=== PATIENT | male | born 1950 | race Caucasian/White ===

== ENCOUNTER 2018-07-02 22:39 | Emergency (ER) | payer MEDICARE, OTHER, SELFPAY ==
[2018-07-02 22:40] VITALS: BP 152/103; PULSE 70
[2018-07-02] MEDS: NITROGLYCERIN 0.4 MG SL TAB SL (22:40)
[2018-07-02 22:43] VITALS: BMI 28.7
--- NOTE | 2018-07-02 22:44 | DI.RAD.S_ITS ---
PROCEDURE: XR CHEST 1V INDICATIONS: Chest pain TECHNIQUE: One view of the chest was acquired. COMPARISON: None. FINDINGS: Surgical changes and devices: None. Lungs and pleura: No pleural effusions or pneumothorax. Lungs are clear. Mediastinum: Mediastinal contours appear normal. Heart size is normal. Bones and chest wall: No suspicious bony lesions. Overlying soft tissues appear unremarkable. IMPRESSION: No acute cardiopulmonary pathology. Dictated by: Javier Peterson M.D. on 07/03/2018 at 9:11 Approved by: Javier Peterson M.D. on 07/03/2018 at 9:11
--- NOTE | 2018-07-02 22:46 | ED.CHESTPAIN ---
HPI - Chest Pain General Chief Complaint: Chest Pain Stated Complaint: Chest pain Time Seen by Provider: 07/02/18 22:42 Source: patient and EMS Mode of arrival: EMS Limitations: no limitations History of Present Illness HPI narrative: 67-year-old male here for evaluation of chest pain. Patient states that approximately 30 min prior to arrival here in the emergency department he had sudden onset of retrosternal chest pressure and also tingling in both of his arms. He states that he did wake up this morning with back pain however this pain is different from that. He did take 2 full doses of aspirin prior to arrival and also ibuprofen. He states this did not improve any of his symptoms. Received 2 doses of nitroglycerin by EMS prior to arrival which she said may have only minimally improved his symptoms. Pain not worse with palpation or movement or breathing. He has never had any pain like this in the past. Related Data Home Medications Medication Instructions Recorded Confirmed allopurinol 300 mg PO QDAY #0 03/02/13 07/02/18 metoprolol succinate 100 mg PO TID #0 05/19/17 07/02/18 telmisartan [Micardis] 80 mg PO Q DAY #0 05/19/17 07/02/18 hydrochlorothiazide 25 mg PO DAILY 07/02/18 07/02/18 Allergies Allergy/AdvReac Type Severity Reaction Status Date / Time Sulfa (Sulfonamide Allergy Mild Verified 07/02/18 23:48 Antibiotics) Review of Systems Constitutional Denies fever(s) ENT Ears, Nose, Mouth, and Throat: Denies vertigo Cardiovascular Reports chest pain, Reports chest pain at rest, Denies syncope, Denies rapid heart rate, Denies pedal edema, Denies leg edema, Denies lightheadedness and Denies dyspnea Respiratory Denies cough and Denies dyspnea Gastrointestinal Gastrointestinal: Denies abdominal pain, Denies nausea and Denies vomiting Musculoskeletal Denies myalgias and Denies arthralgias Integumentary/Breasts Denies lesions and Denies rash Neurologic Denies vertigo, Denies syncope and Reports paresthesias (Bilateral upper extremities) Hematologic/Lymphatic Comments: Not on anticoagulation PFSH Medical History Hypertension (Acute) Surgical History No pertinent past surgical history (Acute) Social History marital status: lives independently: Yes Exam Initial Vital Signs Initial Vital Signs: Vital Signs Pulse Rate 70 07/02/18 22:40 Blood Pressure 152/103 H 07/02/18 22:40 Const General: cooperative, well developed and well groomed Orientation: alert, awake and oriented x3 HENMT Head: normal to inspection and normocephalic Resp Effort & Inspection: normal respiratory effort Auscultation: clear to auscultation bilaterally Cardio Rate: regular rate Rhythm: regular rhythm GI Inspection: non-distended Palpation: soft Skin Lesions: no lesions Rashes: no rashes Neuro General: alert, awake and oriented x3 Extrem General: normal to inspection and capillary refill normal Psych Appearance: grossly normal and well kempt Scores HEART Score Heart Score history: Moderately Suspicious Heart Score EKG: Non-Specific repolarization disturbance Heart Score Age: > or = 65 years old Heart Score risk factors: 1-2 risk factors Heart Score troponin: < or = to normal limit Heart Score Total: 5 Course Orders Ordered: ED Orders 07/02/18 22:40 B Type Natriuretic Peptide Stat Basic Metabolic Panel Stat Complete Blood Count AUTO DIFF Stat Partial Thromboplastin Time Stat Prothrombin Time INR Stat Troponin I Stat 07/02/18 22:44 XR chest 1V Stat EKG-12 Lead Stat 07/02/18 22:54 CT angio chest PE protocol Stat 07/03/18 04:05 Troponin I Stat 07/03/18 05:02 EKG-12 Lead Stat Heparin Sodium (Porcine) (Heparin) 0 unit IV Q6H PRN; Protocol PRN Reason: protocol Sodium Chloride (Normal Saline 0.9%) 1,000 mls @ 125 mls/hr IV CONT RADHA Last Admin: 07/02/18 22:53 Dose: 125 mls/hr Heparin Sodium/Dextrose (Heparin Drip) 25,000 unit in 500 mls @ 21.772 mls/hr IV CONT RADHA; Protocol Last Admin: 07/03/18 05:11 Dose: 12 units/kg/hr, 21.772 mls/hr Discontinued Medications Al Hydrox/Mg Hydrox/Simethicone 20 ml/ Lidocaine HCl 15 ml 0 ml PO NOW ONE Stop: 07/03/18 00:04 Last Admin: 07/03/18 00:16 Dose: 35 ml Heparin Sodium (Porcine) (Heparin) 5,000 unit IV NOW ONE Stop: 07/03/18 05:05 Last Admin: 07/03/18 05:10 Dose: 5,000 unit Hydrochlorothiazide (Hydrochlorothiazide) 25 mg PO NOW ONE Stop: 07/03/18 05:37 Last Admin: 07/03/18 05:50 Dose: 25 mg Metoprolol Succinate (Toprol Xl) 100 mg PO NOW ONE Stop: 07/03/18 05:30 Last Admin: 07/03/18 05:50 Dose: 100 mg Metoprolol Succinate (Toprol Xl) 100 mg PO NOW ONE Stop: 07/03/18 05:53 Last Admin: 07/03/18 05:57 Dose: 100 mg Morphine Sulfate (Morphine) 4 mg IV NOW ONE Stop: 07/02/18 22:54 Last Admin: 07/02/18 23:00 Dose: 4 mg Nitroglycerin (Nitro-Bid) 0.5 inch TOP NOW ONE Stop: 07/02/18 22:43 Last Admin: 07/02/18 22:53 Dose: 0.5 inch Nitroglycerin (Nitrostat) 0.4 mg SL NOW ONE Stop: 07/02/18 22:41 Last Admin: 07/02/18 22:40 Dose: 0.4 mg Telmisartan (Micardis) 80 mg PO DAILY RADHA Vital Signs - 8 hr 07/02/18 22:50 07/02/18 22:53 07/02/18 23:27 Temperature 97.9 F 97.9 F Pulse Rate 72 70 70 Respiratory Rate 18 18 Blood Pressure 143/100 H 144/110 H 143/100 H Blood Pressure [Left Arm] 144/110 H Pulse Oximetry 98 98 07/03/18 00:00 07/03/18 01:05 07/03/18 03:00 Temperature Pulse Rate 71 69 70 Respiratory Rate 15 16 13 Blood Pressure 143/103 H Blood Pressure [Left Arm] 143/103 H 136/96 H 132/99 H Pulse Oximetry 100 93 94 07/03/18 04:01 07/03/18 05:35 07/03/18 05:50 Temperature Pulse Rate 73 83 85 Respiratory Rate 15 14 Blood Pressure 157/104 H Blood Pressure [Left Arm] 146/100 H 157/104 H Pulse Oximetry 97 99 07/03/18 05:57 07/03/18 06:08 07/03/18 06:30 Temperature Pulse Rate 78 77 80 Respiratory Rate 14 14 Blood Pressure 157/104 H Blood Pressure [Left Arm] 151/113 H 154/105 H Pulse Oximetry 97 95 MDM - Chest Pain Lab Data Attestation: I reviewed the patient's lab results. Result diagrams: 07/02/18 22:40 07/02/18 22:40 Lab Results 07/02/18 07/02/18 07/02/18 Range/Units 22:40 22:40 22:40 WBC 9.2 (4.5-11.0) X10^3/uL RBC 4.76 (4.5-5.9) X10^6/uL Hgb 17.0 (13.5-17.5) g/dL Hct 50.7 (41-53) % MCV 106.6 H (80-100) fL MCH 35.8 H (26-34) PG MCHC 33.6 (30-36) % RDW 13.5 (11.6-14.8) % Plt Count 180 (150-400) X10^3/uL Neut % (Auto) 52.9 (50-75) % Lymph % (Auto) 31.9 (25-40) % [place] % (Auto) 9.0 (3-14) % Eos % (Auto) 5.1 H (2-4) % Baso % (Auto) 1.1 (0-2) % Neut # (Auto) 4900 (6058-4348) /uL PT 9.9 L (10.1-12.7) SECONDS INR 0.9 (0.9-1.3) APTT 29 (26.4-36.2) SECONDS Sodium 145 (137-145) mmol/L Potassium 3.6 (3.4-5.1) mmol/L Chloride 102 (98-107) mmol/L Carbon Dioxide 26 (22-32) mmol/L BUN 23 H (9-20) mg/dL Creatinine 1.70 H (0.66-1.25) mg/dL Estimated GFR 40.4 L (>60) mL/min BUN/Creatinine Ratio 13.5 (6-22) Glucose 87 (80-110) mg/dL Calcium 10.0 (8.4-10.2) mg/dL Troponin I < 0.012 (0.01-0.034) ng/mL B-Natriuretic Peptide 48.7 (<100) 07/03/18 Range/Units 04:05 WBC (4.5-11.0) X10^3/uL RBC (4.5-5.9) X10^6/uL Hgb (13.5-17.5) g/dL Hct (41-53) % MCV (80-100) fL MCH (26-34) PG MCHC (30-36) % RDW (11.6-14.8) % Plt Count (150-400) X10^3/uL Neut % (Auto) (50-75) % Lymph % (Auto) (25-40) % [place] % (Auto) (3-14) % Eos % (Auto) (2-4) % Baso % (Auto) (0-2) % Neut # (Auto) (2731-5244) /uL PT (10.1-12.7) SECONDS INR (0.9-1.3) APTT (26.4-36.2) SECONDS Sodium (137-145) mmol/L Potassium (3.4-5.1) mmol/L Chloride (98-107) mmol/L Carbon Dioxide (22-32) mmol/L BUN (9-20) mg/dL Creatinine (0.66-1.25) mg/dL Estimated GFR (>60) mL/min BUN/Creatinine Ratio (6-22) Glucose (80-110) mg/dL Calcium (8.4-10.2) mg/dL Troponin I 0.872 H* (0.01-0.034) ng/mL B-Natriuretic Peptide (<100) Imaging Data CT scan - chest: Radiologist's impression: No evidence of pulmonary embolism or thoracic aortic dissection ECG Data Attestation: I personally reviewed and interpreted this ECG as follows: Prior ECG tracings: not available for review Interpretation: Sinus rhythm Ventricular rate is 76 Normal axis Normal QRS Normal QTC Nonspecific ST T wave changes Repeat EKG timed 0511 hr Sinus rhythm Ventricular rate is 74 First degree AV block with as needed oval of 210 milliseconds Normal axis Normal QRS Normal QTC MDM Narrative Medical decision making narrative: Patient received aspirin and 2 doses of nitroglycerin prior to arrival here in the emergency department. He received a 3rd dose of nitro here in the ER and he states only minimally if any improved his discomfort. He continued have chest discomfort and bilateral arm tingling. Nitropaste was placed on the patient because of the continued pain. He was given 4 mg of morphine which he states did improve his symptoms somewhat. He was given a GI cocktail which she states did not change any of his symptoms. This was given secondary to the distal esophageal findings on the CT scan. Patient's initial troponin was negative however this was drawn less than 1 hr after the onset of his symptoms. During his stay here in the emergency department he reported improvement in his symptoms. Had a long discussion with the patient regarding his symptoms and his risk factors for coronary artery disease. I did recommend that he stay here in the emergency department for repeat troponin which he agreed to do. This repeat troponin did come back elevated. A repeat EKG was ordered at the time. No significant change on this new EKG from his prior EKG. Heparin was started. Informed patient of his new lab results and the importance of us transfer him to a facility that has cardiology. He expressed understanding and agreement with this transport. Discussed the case with Dr. kenney internal medicine at [facility]. He accepts the patient in transfer. Patient is stable for transfer. Discharge Plan Departure Patient Disposition: [facility] Clinical Impression: Non-ST elevation NC (NSTEMI), Hypertension Prescriptions: No Action allopurinol 300 MG tablet 300 mg PO QDAY Qty: 0 RF: 0 metoprolol succinate 100 MG tablet extended release 24 hr 100 mg PO TID Qty: 0 RF: 0 telmisartan [Micardis] 80 MG tablet 80 mg PO Q DAY Qty: 0 RF: 0 hydrochlorothiazide 25 mg Tablet 25 mg PO DAILY RF: 0
[2018-07-02 22:50] VITALS: BP 143/100; PULSE 72
[2018-07-02 22:53] VITALS: BP 144/110; PULSE 70; RESP 18; TEMP 36.6; O2SAT 98
[2018-07-02] MEDS: NITROGLYCERIN OINT 1 INCH/GM OINT...G. 0.5 INCH TOP (22:53)
[2018-07-02] MEDS: SODIUM CHLORIDE 0.9% 1,000 ML 125 ML IV (22:53)
[2018-07-02 22:54] LABS: Add Manual Diff / Slide Review NO; Basophils Percent Auto 1.1 % (0-2); Eosinophils Percent Auto 5.1 % (2-4); Hematocrit 50.7 % (41-53); Lymphocytes Percent Auto 31.9 % (25-40); Mean Corpuscular HGB Conc 33.6 % (30-36); Mean Corpuscular Hemoglobin 35.8 PG (26-34); Mean Corpuscular Volume 106.6 fL (80-100); Neutrophils Absolute Auto 4900 /uL (3000-5900); Neutrophils Percent Auto 52.9 % (50-75); Platelet Count 180 X10^3/uL (150-400); Red Blood Cell Count 4.76 X10^6/uL (4.5-5.9); Red Cell Distribution Width 13.5 % (11.6-14.8); White Blood Cell Count 9.2 X10^3/uL (4.5-11.0)
--- NOTE | 2018-07-02 22:54 | DI.CT.S_ITS ---
PROCEDURE: CT ANGIO CHEST PE PROTOCOL INDICATIONS: Chest pain, shortness of breath TECHNIQUE: After the administration of intravenous contrast, 2 mm thick sections acquired from the pulmonary apices to the posterior costophrenic angles. 3-dimensional maximum intensity projection (MIP) coronal and sagittal reformats were then acquired through the thorax. For radiation dose reduction, the following was used: automated exposure control, adjustment of mA and/or kV according to patient size. COMPARISON: None. FINDINGS: Image quality: Excellent. Pulmonary arteries: Pulmonary arteries are normal in size, and demonstrate no intraluminal filling defects to suggest central pulmonary embolism. Lungs and pleura: Dependent atelectasis in posterior aspect of bilateral lung bases are seen. Bilateral lungs are otherwise clear. No pleural effusions or pneumothorax. Central and peripheral airways are patent. Mediastinum: Heart size is enlarged, without pericardial effusion. No mediastinal or hilar adenopathy. Thoracic aorta is normal in caliber and enhancement. Esophagus is normal in caliber, with a small hiatal hernia. There is questionable distal esophageal wall thickening near GE junction Bones and chest wall: No suspicious bony lesions. Ribs and thoracic spine appear intact throughout. Thyroid gland is within normal limits. No axillary or supraclavicular adenopathy. Abdomen: Visualized upper abdominal solid organs appear normal in the early arterial phase of enhancement. IMPRESSION: 1. No evidence of pulmonary embolism. No thoracic aortic aneurysm or dissection. Cardiomegaly, no pericardial effusion. 2. Bilateral lungs are clear. 3. Small hiatal hernia and mild distal esophageal wall thickening, which may represent esophagitis. No definite esophageal wall mass is seen. No significant discrepancies. Dictated by: Javier Peterson M.D. on 07/03/2018 at 8:45 Approved by: Javier Peterson M.D. on 07/03/2018 at 8:47
[2018-07-02 22:55] LABS: INR 0.9 (0.9-1.3); Prothrombin Time 9.9 SECONDS (10.1-12.7)
[2018-07-02 22:58] LABS: PTT Partial Thromboplastin Tim 29 SECONDS (26.4-36.2)
[2018-07-02 22:59] LABS: BUN Creatinine Ratio 13.5 (6-22); Blood Urea Nitrogen 23 mg/dL (9-20); Carbon Dioxide 26 mmol/L (22-32); Chloride 102 mmol/L (98-107); Estimated Glomerular Filt Rate 40.4 mL/min (>60); Glucose 87 mg/dL (80-110); HEMOLYSIS 45 (0-50); Potassium 3.6 mmol/L (3.4-5.1); Sodium 145 mmol/L (137-145)
[2018-07-02] MEDS: MORPHINE 4 MG/ML INJ IV (23:00)
[2018-07-02 23:12] LABS: B Type Natriuretic Peptide 48.7 (<100); Troponin I < 0.012 ng/mL (0.01-0.034)
[2018-07-02 23:27] VITALS: BP 143/100; PULSE 70; RESP 18; TEMP 36.6; O2SAT 98; BMI 28.7
--- NOTE | 2018-07-02 23:42 | PC.NURSE ---
Pt states Chest tightness and pain that radiates down both upper extremities bilaterally onset 2200. Reports hx of HTN and no other cardiac hx. States has not taken his nightly 200mg dose of metoprolol yet.
[2018-07-03] VITALS (13 sets, daily range): BP systolic 132–157; BP diastolic 96–113; PULSE 67–85; RESP 13–18; O2SAT 93–100
[2018-07-03] MEDS: MAG HYDROX/ALUMINUM/SIMETH SUS 20 ML, LIDOCAINE VISCOUS 2% 15 ML PO (00:16)
[2018-07-03 04:58] LABS: Troponin I 0.872 ng/mL (0.01-0.034)
[2018-07-03] MEDS: HEPARIN 5,000 UNIT/ML VIAL 5000 UNIT IV (05:10)
[2018-07-03] MEDS: HEPARIN DRIP 25,000 UNIT/500 ML IV.SOLN 21.772 UNIT IV (05:11)
[2018-07-03] MEDS: hydroCHLOROthiazide 25 MG TABLET PO (05:50)
[2018-07-03] MEDS: METOPROLOL ER 50 MG TABLET 100 MG PO ×2 (05:50→05:57)
[2018-07-03] MEDS: SODIUM CHLORIDE 0.9% 1,000 ML 125 ML IV (07:15)
== END 2018-07-03 08:57 | disposition short-term general hospital (02) ==
PROVIDERS: Emergency Provider Emergency Medicine; Family Provider Family Medicine; PCP Family Medicine
DX: I21.4 Non-ST elevation (NSTEMI) myocardial infarction (principal); I10 Essential (primary) hypertension
CPT/HCPCS: 36415; 71045; 71275; 80048; 83880; 84484; 85025; 85610; 85730; 93005; 93010; 96361; 96365; 96366; 96375; 99285; J1644; J2270; Q9967

== ENCOUNTER → 2018-10-26 11:49 | Outpatient (CLI) | payer MEDICARE, OTHER, SELFPAY ==
--- NOTE | 2018-10-26 | DI.RAD.S_ITS ---
PROCEDURE: XR CHEST 2V INDICATIONS: R/O STERNAL NONUNION S/P STERNOTOMY TECHNIQUE: 2 views of the chest were acquired. COMPARISON: None. FINDINGS: Surgical changes and devices: Sternotomy and CABG. Lungs and pleura: Lungs are clear. No pleural effusions or pneumothorax. Mediastinum: Mediastinal contours are normal. Heart size is normal. Bones and chest wall: No suspicious bony abnormalities. Soft tissues appear unremarkable. IMPRESSION: No active cardiopulmonary disease. Dictated by: Maria Luz Kramer M.D. on 10/26/2018 at 14:48 Approved by: Maria Luz Kramer M.D. on 10/26/2018 at 14:49
== END ==
PROVIDERS: Family Provider Family Medicine; PCP Family Medicine; Visit Provider Physician Assistant Surgical
DX: Z48.89 Encounter for other specified surgical aftercare (principal); Z98.890 Other specified postprocedural states; Z95.1 Presence of aortocoronary bypass graft
CPT/HCPCS: 71046

== ENCOUNTER 2018-12-06 14:00 | Outpatient (RCR) | payer MEDICARE, OTHER, SELFPAY | END 2018-12-13 14:55 | LOC: CAR 14:00 | PROVIDERS: Family Provider Family Medicine; PCP Family Medicine; Visit Provider Thoracic Surgery (Cardiothoracic Vascular Surgery) | DX: Z95.1 Presence of aortocoronary bypass graft (principal) | CPT/HCPCS: 93798 ==

== ENCOUNTER → 2020-10-08 15:05 | Outpatient (CLI) | payer MEDICARE, OTHER, SELFPAY ==
--- NOTE | 2020-10-08 | DI.US.S_ITS ---
PROCEDURE: US PERIPH VENOUS LOW EXTREM LT INDICATIONS: Rule out DVT left leg TECHNIQUE: Real-time imaging, as well as color and pulse Doppler interrogation, were performed of the lower extremity deep veins from the inguinal ligament to the popliteal fossa. COMPARISON: None. FINDINGS: The common femoral, femoral and popliteal veins are normally compressible, and free of intraluminal thrombus. Color and pulse Doppler demonstrate normal phasic intraluminal flow. There is normal augmentation response to distal compression maneuver. Soft tissue edema can be seen medial to the left knee. There is a complex, septated mass with vascularity and visualized tract connecting it to the skin measuring 3.2 x 2.2 x 2.1 cm. IMPRESSION: Negative for deep venous thrombosis. Non-specific 3.2 cm focus seen medial to the knee at the area of clinical concern. Differential diagnosis includes hematoma, phlegmon, or potentially an abscess. Please correlate with known patient history. Dictated by: Shahab Gamboa M.D. on 10/08/2020 at 15:52 Approved by: Shahab Gamboa M.D. on 10/08/2020 at 15:53
== END ==
PROVIDERS: PCP Student in an Organized Health Care Education/Training Program; Referring Provider Internal Medicine; Visit Provider Internal Medicine
DX: R22.42 Localized swelling, mass and lump, left lower limb (principal)
CPT/HCPCS: 93971

== ENCOUNTER → 2020-11-13 11:52 | Outpatient (CLI) | payer MEDICARE, OTHER, SELFPAY ==
--- NOTE | 2020-11-13 | DI.RAD.S_ITS ---
PROCEDURE: XR CHEST 2V INDICATIONS: FATIGUE TECHNIQUE: 2 views of the chest were acquired. COMPARISON: [facility], CR, XR CHEST 2V, 10/26/2018, 12:02. [facility], CR, XR CHEST 1V, 07/02/2018, 22:49. FINDINGS: Surgical changes and devices: None. Lungs and pleura: Lungs are clear. No pleural effusions or pneumothorax. Mediastinum: Mediastinal contours are normal. Heart size is normal. Bones and chest wall: No suspicious bony abnormalities. Soft tissues appear unremarkable. IMPRESSION: Normal for age, source of current fatigue symptoms is not seen. Dictated by: Kaveh Benítez M.D. on 11/13/2020 at 12:37 Approved by: Kaveh Benítez M.D. on 11/13/2020 at 12:37
== END ==
PROVIDERS: PCP Student in an Organized Health Care Education/Training Program; Referring Provider Student in an Organized Health Care Education/Training Program; Visit Provider Student in an Organized Health Care Education/Training Program
DX: R53.83 Other fatigue (principal); I25.10 Atherosclerotic heart disease of native coronary artery without angina pectoris
CPT/HCPCS: 71046

== ENCOUNTER → 2020-11-26 10:10 | Outpatient (CLI) | payer MEDICARE, OTHER, SELFPAY ==
--- NOTE | 2020-11-26 | DI.ECHO.S_ITS ---
[facility]---------+ [facility] +---------+ : : [address] : : : : [id number] : : : : Phone: [phone] Echocardiogram Report + + :Name: GREGORIA MENDOZA Study Date: 11/26/2020 Height: 70 in : :[facility] ReadingLocation: Weight: 196 lb : : Gender: Male BSA: 2.1 m2 : :: 1950 Age: 69 yrs BP: 149/99 mmHg: :Reason For Study: CAD : :Ordering Physician: COLLEEN, : :LONG Performed By: Isai Ramirez : :Referring: LONG MACIAS : + + Interpretation Summary Normal left ventricle size with ejection fraction 60-65%. Mild aortic valve sclerosis. Mild mitral regurgitation. Mild to moderate tricuspid regurgitation. The right ventricular systolic pressure is estimated to be at least 36 mmHg based on an estimated right atrial pressure of 3 mm Hg. The ascending aorta is mildly enlarged. Comparison is made with the echocardiogram of 05/18/2017, there has been no significant change. Procedure: A two-dimensional transthoracic echocardiogram with color flow and Doppler was performed. The study quality was technically adequate. Comparison is made with the echocardiogram of 05/18/2017. The patient was in sinus rhythm with heart rates between 58-67 bpm during the exam. Left Ventricle: The left ventricle is normal in size and wall thickness. The ejection fraction is estimated to be 60-65%. There are no focal wall motion abnormalities. Diastolic function could not be accurately assessed due to contradictory data. Right Ventricle: The right ventricle is normal in size and function. Atria: Both atria are normal in size. There is no Doppler evidence for an interatrial shunt. Mitral Valve: The mitral valve is normal in structure and function. There is mild mitral regurgitation. Aortic Valve: There is mild aortic valve sclerosis. There is trace aortic regurgitation. Tricuspid Valve: The tricuspid valve is normal in structure and function. There is mild to moderate tricuspid regurgitation. The right ventricular systolic pressure is estimated to be at least 36 mmHg based on an estimated right atrial pressure of 3 mm Hg. Pulmonic Valve: The pulmonic valve is not well seen, but is grossly normal. There is no pulmonic valvular regurgitation. Great Vessels: The aortic root is normal size. The ascending aorta is mildly enlarged. The IVC is of normal diameter and collapses greater than 50% with a sniff. This suggests a low right atrial pressure of 3 mm Hg. Pericardium/ Pleura There is no pericardial effusion. There is no pleural effusion. MMode/2D Measurements & Calculations LVIDd: 5.2 cm LVOT diam: 2.4 cm LVIDs: 3.6 cm Ao root diam: 3.1 cm FS: 30.1 % asc Aorta Diam: 3.8 cm IVSd: 0.69 cm LVPWd: 0.65 cm LV [place]. diameter/BSA (cm/m^2): 2.5 LV sys. diameter/BSA (cm/m^2): 1.8 LA A2 area: 17.5 cm2 RA area: 11.0 cm2 LA A4 area: 14.1 cm2 LA length (vol): 4.7 cm LA vol: 45.0 ml LA vol index: 21.7 ml/m2 RVD1 (basal): 2.9 cm TAPSE: 1.9 cm Doppler Measurements & Calculations Ao V2 max: 134.5 cm/sec LVOT Max Sean: 124.6 cm/sec Ao V2 mean: 99.2 cm/sec LV V1 max P.2 mmHg Ao max P.2 mmHg LV V1 VTI: 27.4 cm Ao mean P.2 mmHg AN(I,D): 4.1 cm2 Ao V2 VTI: 29.3 cm AN(V,D): 4.0 cm2 sev ratio: 0.94 AN indexed to BSA (cm^2/m^2): 2.0 MV E max sean: 82.2 cm/sec TR max sean: 288.4 cm/sec MV A max sean: 62.9 cm/sec TR max P.3 mmHg MV E/A: 1.3 PA V2 max: 103.4 cm/sec Med Peak E' Sean: 4.8 cm/sec PA V2 mean: 71.1 cm/sec E/E' med: 17.0 PA mean P.2 mmHg Lat Peak E' Sean: 12.8 cm/sec PA pr(Accel): 27.1 mmHg E/E' lat: 6.4 E/e' average: 11.7 MV dec time: 0.16 sec SV(LVOT): 118.9 ml Electronically signed by: Raciel Puckett on Reading Physician:11/26/2020 05:43 PM
== END ==
PROVIDERS: PCP Student in an Organized Health Care Education/Training Program; Referring Provider Student in an Organized Health Care Education/Training Program; Visit Provider Student in an Organized Health Care Education/Training Program
DX: I08.3 Combined rheumatic disorders of mitral, aortic and tricuspid valves (principal); I25.10 Atherosclerotic heart disease of native coronary artery without angina pectoris; I77.89 Other specified disorders of arteries and arterioles; R53.83 Other fatigue
CPT/HCPCS: 93306

== ENCOUNTER → 2020-12-12 11:37 | Outpatient (CLI) | payer MEDICARE, OTHER, SELFPAY ==
[2020-12-12 13:12] LABS: COVID19 -Nasal RAPID Negative (Negative)
== END ==
PROVIDERS: PCP Student in an Organized Health Care Education/Training Program; Visit Provider Physician Assistant
DX: Z20.822 Contact with and (suspected) exposure to COVID-19 (principal)
CPT/HCPCS: 87635; C9803

== ENCOUNTER → 2020-12-14 10:39 | Outpatient (CLI) | payer MEDICARE, OTHER, SELFPAY ==
--- NOTE | 2020-12-14 10:41 | DI.NM.S_ITS ---
PROCEDURE: NM DUNIA PERF SPECT R&S PHARM Rest and pharmacological stress myocardial perfusion SPECT with gated imaging and ejection fraction RADIOPHARMACEUTICAL: 19.2 mCi Tc-99m tetrafosmin IV at rest and 26.8 mCi Tc-99m tetrafosmin IV at peak effect of pharmacological stress. [id number] was performed. INDICATIONS: Atherosclerotic heart disease of [place] coronary TECHNIQUE: Radiopharmaceutical was injected at peak stress test, and also at rest. SPECT images were obtained. SPECT myocardial perfusion images were displayed in short axis, horizontal long axis, and vertical long axis views. Gated images were reviewed using judo software. COMPARISON: None. CARDIAC STRESS: A pharmacologic stress test was performed under the supervision of an attending staff, using an infusion of lexiscan 0.4mg IV X1. Hemodynamic data: There is normal blood pressure and heart rate response to pharmacologic stress. Symptoms: The patient denied anginal chest pain. Aminophylline: none EKG: No diagnostic changes of ischemia; no ectopy. FINDINGS: Raw data: There is good myocardial uptake of radiotracer. No significant motion artifacts. Sncq-[id number] ratio is 0.36 (normal is less than 0.38 for tetrafosmin tracer). Left ventricle function: Gated images demonstrate normal left ventricular wall thickening. No segmental wall motion abnormalities. No transient ischemic dilation; TID is 0.94 (normal less than 1.3). Left ventricle resting end diastolic volume is 91 mL. Left ventricle stress ejection fraction is 72%; normal range is above 45%. Myocardial perfusion: There is a fixed inferior wall defect that doesn't improve with prone imaging, suggesting prior infarction without significant giana-infarct ischemia. There is a fixed inferolaterall wall defect that improves with prone imaging, suggesting prior small infarct and no significant per-infarct ischemia but ischemia can't be definitely excluded as the resting prone images not obtained. IMPRESSION: Abnormal nuclear stress test with prior infarction and no significant per-infarct ischemia. SSS 12. 1) There is a fixed inferior wall defect that doesn't improve with prone imaging, suggesting prior non-transmural infarction without significant giana-infarct ischemia. There is a fixed inferolaterall wall defect that improves with prone imaging, suggesting prior small non-transmural infarct and no significant per-infarct ischemia but ischemia can't be definitely excluded as the resting prone images not obtained. 2) Normal left ventricular size, wall motion, and systolic function (EF post stress 72%). 3) No ECG evidence of ischemia with lexiscan. 4) No angina during the study. 5) No prior nuclear stress test available for comparison. Dictated by: Ashwin Pacheco MD on 12/17/2020 at 17:16 Approved by: Ashwin Pacheco MD on 12/17/2020 at 17:21
--- NOTE | 2020-12-14 11:50 | PM.TREADMILL ---
Cardiac Stress Test Report Referral & Results Date Patient Seen: 12/14/20 Time Patient Seen: 11:50 Requesting provider: Viktoriya Umaña Indication: Atherosclerotic heart disease Rest ECG: Sinus rhythm with Q waves in inferolateral leads Procedure Note: After Lexiscan injection had minimal dyspnea and no chest discomfort No significant ST changes on EKG after Lexiscan injection. Impression: Normal Lexiscan stress test Nuclear images pending. Please note: Actual ECG tracings can be found in the PACS system.
== END ==
PROVIDERS: PCP Student in an Organized Health Care Education/Training Program; Referring Provider Student in an Organized Health Care Education/Training Program; Visit Provider Student in an Organized Health Care Education/Training Program
DX: I25.10 Atherosclerotic heart disease of native coronary artery without angina pectoris (principal); R53.83 Other fatigue
CPT/HCPCS: 78452; 93016; 93017; 93018; A9502; J2785

== ENCOUNTER 2021-05-03 23:34 | Emergency (ER) | payer MEDICARE, OTHER, SELFPAY ==
[2021-05-03 23:40] VITALS: BP 143/79; PULSE 64; RESP 18; TEMP 36.6; O2SAT 100; BMI 27.9
[2021-05-03 23:54] VITALS: BP 131/88; PULSE 67; RESP 15; TEMP 36.1; O2SAT 94
--- NOTE | 2021-05-04 00:37 | DI.CT.S_ITS ---
PROCEDURE: CT HEAD/BRAIN WO CON INDICATIONS: Fall/pain TECHNIQUE: Noncontrast 4.5 mm thick angled axial sections acquired from the foramen magnum to the vertex, with coronal and sagittal reformats. For radiation dose reduction, the following was used: automated exposure control, adjustment of mA and/or kV according to patient size. COMPARISON: [facility], CT, HEAD WITHOUT CONTRAST, 02/27/2013, 9:28. FINDINGS: Image quality: Excellent. CSF spaces: Basal cisterns are patent. No extra-axial fluid collections. The ventricles are symmetric in size and shape. Brain: No intracranial bleeds or masses. There is cerebral volume loss for age, with resultant ventricular and sulcal prominence. There are periventricular and deep white matter chronic small vessel ischemic changes. There is intracranial internal carotid artery atherosclerosis. Skull and face: Calvarium and visualized facial bones appear intact, without suspicious lesions. Bilateral intraocular lens replacements noted. Sinuses: Visualized sinuses and mastoids are clear. IMPRESSION: Mild atrophy and chronic ischemic change without acute hemorrhage or mass effect. Approved by: Junaid Olea M.D. on 05/04/2021 at 0:30
--- NOTE | 2021-05-04 00:37 | DI.CT.S_ITS ---
PROCEDURE: CT FACIAL BONES WO CON INDICATIONS: Fall/pain TECHNIQUE: Noncontrast 2.5 mm thick axial images acquired from the mandible through the frontal sinuses, with coronal and sagittal reformatting. For radiation dose reduction, the following was used: automated exposure control, adjustment of mA and/or kV according to patient size. COMPARISON: None. FINDINGS: Maxillofacial Bones: The zygomaticomaxillary complex is intact. The pterygoid plates and skull base are unremarkable. No evidence of fracture or lytic lesion. Mandible: The mandible is intact without fracture. Unremarkable temporomandibular articulation. Dentition: Unremarkable mandibular and maxillary dentition. Soft tissues: No maxillofacial soft tissue swelling. No radiopaque foreign bodies. Small right periorbital soft tissue laceration noted. Orbits: The osseous orbits, globes and ocular muscles unremarkable. Bilateral intraocular lens replacements noted. Sinuses and Mastoid: The visualized portion of the paranasal sinuses and mastoids are normal. No air-fluid levels or wall fractures. The nasal vault is unremarkable. IMPRESSION: Right periorbital soft tissue laceration and swelling without radiopaque foreign body. No evidence of maxillofacial fracture. Approved by: Junaid Olea M.D. on 05/04/2021 at 0:27
--- NOTE | 2021-05-04 00:37 | DI.CT.S_ITS ---
PROCEDURE: CT CERVICAL SPINE WO CON INDICATIONS: Fall/pain TECHNIQUE: Noncontrast 3 mm thick sections acquired from the skull base to the T4 level. Sagittal and coronal reformats were then constructed. For radiation dose reduction, the following was used: automated exposure control, adjustment of mA and/or kV according to patient size. COMPARISON: None. FINDINGS: Image quality: Excellent. Bones: No fractures or dislocations. Visualized superior ribs are intact. Degenerative disc disease and arthropathy in the mid cervical spine results in mild central stenosis at C6-7 and moderate right foraminal stenosis at C5-6 C6-7 and left foraminal stenosis at C6-7. Soft tissues: Prevertebral soft tissues are normal in thickness. No paravertebral hematomas. No apical pneumothoraces. IMPRESSION: No evidence of fracture or malalignment. Multilevel degenerative disc disease and arthropathy in the mid cervical spine Approved by: Junaid Olea M.D. on 05/04/2021 at 0:41
--- NOTE | 2021-05-04 00:38 | ED_ITS ---
HPI - Head Injury General Chief complaint: Head Injury Stated complaint: tripped on chair, right side head laCeration Time Seen by Provider: 05/04/21 00:22 Source: patient Mode of arrival: Wheelchair Limitations: no limitations History of Present Illness HPI Narrative: Patient here with . Patient has injury to the right eyebrow. 4 cm horizontal laceration. Patient got up tonight and foot got caught on a chair and fell forward hitting his head on the floor. No loss of consciousness. No altered mental status. No vision changes. No vomiting. Bleeding controlled. Patient on blood thinners. Denies any other injuries. No neck pain. No limb pain or injury. No abdomen pelvis or back pain or pelvis pain or hip pain. Needs tetanus shot. Bleeding controlled. No recent illness. No nausea vomiting diarrhea cough cold or congestion. Related Data Home Medications Medication Instructions Recorded Confirmed allopurinol 300 mg tablet 300 mg PO QDAY #0 03/02/13 10/22/20 metoprolol succinate 100 mg 100 mg PO TID #0 05/19/17 10/22/20 tablet,extended release 24 hr telmisartan 80 mg tablet (Micardis) 80 mg PO Q DAY #0 05/19/17 10/22/20 hydrochlorothiazide 25 mg tablet 25 mg PO DAILY 07/02/18 10/22/20 atorvastatin 40 mg tablet 40 mg PO DAILY 10/22/20 10/22/20 brimonidine 0.025 % eye drops drp EYE-LEFT 10/22/20 10/22/20 Allergies Allergy/AdvReac Type Severity Reaction Status Date / Time Sulfa (Sulfonamide Allergy Mild Verified 10/22/20 14:58 Antibiotics) Review of Systems Review of Systems Narrative: GENERAL: Denies chills, fatigue, malaise, fever, sweats. HEENT: Denies sinus pain, ear pain, sore throat RESPIRATORY: Denies dyspnea, cough CARDIOVASCULAR: Denies chest pain, palpitations GASTROINTESTINAL: Denies nausea, vomiting, abdominal pain : Denies dysuria, frequency, hematuria MUSCULOSKELETAL: denies muscle or bony pain SKIN: Denies rash, skin lesions, positive for laceration NEUROLOGIC: Denies weakness, numbness ROS Unobtainable: All systems reviewed & are unremarkable except as noted in HPI and below Patient History Medical History History of heart attack History of prostate cancer Hypertension Surgical History History of prostate surgery Hx of appendectomy Hx of heart bypass surgery No pertinent past surgical history Family History Father Hypertension Stroke Mother Hypertension Brother Hypertension Social History marital status: household members: spouse lives independently: Yes occupational status: previously employed Smoking Status: Never smoker alcohol intake: current substance use type: does not use Smoking Status: Never smoker Exam Narrative Exam Narrative: GENERAL: in no distress, not toxic not dyspneic HEAD: Normocephalic. 4 cm laceration at the right eyebrow. Bloodless field. Base visualized. No bone or muscle injury seen. No foreign body. EYES: Pupils equal round No scleral icterus. No injection no discharge ENT: Mucous membranes moist. NECK: Trachea midline. No midline tenderness or step-off. CARDIOVASCULAR: Regular rate and rhythm without murmurs RESPIRATORY: Clear to auscultation. Breath sounds equal bilaterally. No wheezes, rales, or rhonchi. GASTROINTESTINAL: Abdomen soft, non-tender EXTREMITIES: No gross deformities. Nontender bilateral shoulders elbows wrists pelvis hips knees and ankles. NEURO: AOx4. SKIN: Warm and dry PSYCH: Not anxious, is cooperative Initial Vital Signs Initial Vital Signs: Vital Signs Temperature 97.8 F 05/03/21 23:40 Pulse Rate 64 05/03/21 23:40 Respiratory Rate 18 05/03/21 23:40 Blood Pressure 143/79 H 05/03/21 23:40 Pulse Oximetry 100 05/03/21 23:40 Procedures Laceration Repair Laceration 1: Time of procedure: 02:22 Site: face Side (If applicable): right Size (cm): 4 Description: linear Depth: simple, single layer Local Anesthetic: lidocaine 1% and with epi Amount of anesthesia used (mL): 3 Pre-repair: wound explored, irrigated extensively and deep structures intact Skin layer closed with: nylon Size (cm): 5-0 Number of sutures: 8 Technique: simple, interrupted Course Course Course Narrative: No new issues during course of stay Orders Ordered: Discontinued Medications Bacitracin (Bacitracin Oint 0.9 Gm Pckt) 1 applic TOP NOW ONE Stop: 05/04/21 02:19 Last Admin: 05/04/21 02:22 Dose: 1 applic Documented by: GIOVANNA Diphtheria/Tetanus/Acell Pertussis (Tet,Diph,Pertuss(Acell),Vac/Pf 0.5 Ml Syringe) 0.5 ml IM .ONCE ONE Stop: 05/04/21 00:39 Last Admin: 05/04/21 01:16 Dose: 0.5 ml Documented by: ESTHER Reevaluation(s) Reevaluation #1: Reviewed results with patient. Tolerated procedure well. Bleeding controlled. Return precautions reviewed with him. Time: 02:24 Vital Signs Vital signs: Vital Signs - 8 hr 05/03/21 23:40 05/03/21 23:54 Temperature 97.8 F 97.0 F L Pulse Rate 64 67 Respiratory Rate 18 15 Blood Pressure 143/79 H 131/88 Pulse Oximetry 100 94 MDM - Head Injury Differential Diagnosis Differential diagnosis: Likely concussion without loss of consciousness, epidural hematoma, closed head injury, subdural hematoma and other (Eyebrow laceration) Imaging Data CT scan - head: Radiologist's Impression: [place] [address] CT Scan Report Signed Patient: Néstor Jones MR#: [id number] : 1950 Acct:[id number] Age/Sex: 70 / M Date of Service: 05/04/21 Loc: ED Accession Number: [id number] ?? Procedure: CT head/brain wo con Ordering Provider: Gregorio Harris MD PROCEDURE:? CT HEAD/BRAIN WO CON ? INDICATIONS:? Fall/pain ? TECHNIQUE:? Noncontrast 4.5 mm thick angled axial sections acquired from the foramen magnum to the vertex, with coronal and sagittal reformats.? For radiation dose reduction, the following was used:? automated exposure control, adjustment of mA and/or kV according to patient size.? ? COMPARISON:? [facility], CT, HEAD WITHOUT CONTRAST, 02/27/2013, 9:28. ? FINDINGS:? Image quality:? Excellent.? ? CSF spaces:? Basal cisterns are patent.? No extra-axial fluid collections.? The ventricles are symmetric in size and shape.? ? Brain:? No intracranial bleeds or masses.? There is cerebral volume loss for age, with resultant ventricular and sulcal prominence.? There are periventricular and deep white matter chronic small vessel ischemic changes.? There is intracranial internal carotid artery atherosclerosis.? ? Skull and face:? Calvarium and visualized facial bones appear intact, without suspicious lesions.? Bilateral intraocular lens replacements noted. ? Sinuses:? Visualized sinuses and mastoids are clear.? ? IMPRESSION:? ? Mild atrophy and chronic ischemic change without acute hemorrhage or mass effect. ? ? ? Approved by: Junaid Olea M.D. on 05/04/2021 at 0:30? CT - cervical spine: Radiologist's Impression: [address] [address] [address] Scan Report Signed Patient: Néstor Jones MR#: [id number] : 1950 Acct:[id number] Age/Sex: 70 / M Date of Service: 05/04/21 Loc: ED Accession Number: [id number] ?? Procedure: CT cervical spine wo con Ordering Provider: Gregorio Harris MD PROCEDURE:? CT CERVICAL SPINE WO CON ? INDICATIONS:? Fall/pain ? TECHNIQUE:? Noncontrast 3 mm thick sections acquired from the skull base to the T4 level.? Sagittal and coronal reformats were then constructed.? For radiation dose reduction, the following was used:? automated exposure control, adjustment of mA and/or kV according to patient size.? ? COMPARISON:? None. ? FINDINGS:? Image quality:? Excellent.? ? Bones:? No fractures or dislocations.? Visualized superior ribs are intact.? Degenerative disc disease and arthropathy in the mid cervical spine results in mild central stenosis at C6-7 and moderate right foraminal stenosis at C5-6 C6-7 and left foraminal stenosis at C6-7. ? Soft tissues:? Prevertebral soft tissues are normal in thickness.? No paravertebral hematomas.? No apical pneumothoraces.? ? ? IMPRESSION:? ? No evidence of fracture or malalignment. Multilevel degenerative disc disease and arthropathy in the mid cervical spine ? Approved by: Junaid Olea M.D. on 05/04/2021 at 0:41? ct face: Radiologist's Impression: [address] [address] [address] Scan Report Signed Patient: Néstor Jones MR#: [id number] : 1950 Acct:[id number] Age/Sex: 70 / M Date of Service: 05/04/21 Loc: ED Accession Number: [id number] ?? Procedure: CT facial bones wo con Ordering Provider: Gregorio Harris MD PROCEDURE:? CT FACIAL BONES WO CON ? INDICATIONS:? Fall/pain ? TECHNIQUE:? Noncontrast 2.5 mm thick axial images acquired from the mandible through the frontal sinuses, with coronal and sagittal reformatting.? For radiation dose reduction, the following was used:? automated exposure control, adjustment of mA and/or kV according to patient size.? ? COMPARISON:? None. ? FINDINGS: ? Maxillofacial Bones:? The zygomaticomaxillary complex is intact. The pterygoid plates and skull base are unremarkable. No evidence of fracture or lytic lesion. ? Mandible:? The mandible is intact without fracture.? Unremarkable temporomandibular articulation. ? Dentition:? Unremarkable mandibular and maxillary dentition. ? Soft tissues:? No maxillofacial soft tissue swelling. No radiopaque foreign bodies.? Small right periorbital soft tissue laceration noted. ? Orbits:? The osseous orbits, globes and ocular muscles unremarkable.? Bilateral intraocular lens replacements noted. ? Sinuses and Mastoid:? The visualized portion of the paranasal sinuses and mastoids are normal. No air-fluid levels or wall fractures. The nasal vault is unremarkable. ? ? IMPRESSION:? ? Right periorbital soft tissue laceration and swelling without radiopaque foreign body. No evidence of maxillofacial fracture. ? ? ? Approved by: Junaid Olea M.D. on 05/04/2021 at 0:27? MDM Narrative Medical decision making narrative: Appropriate for discharge home. Patient tolerated procedure very well. Bleeding controlled. No vision changes on the right side. Return precautions reviewed with patient and . Imaging and exam reassuring. Discharge Plan Departure Patient Disposition: Home Clinical Impression: Laceration of face Qualifiers: Encounter type: initial encounter Qualified Code(s): S01.81XA - Laceration without foreign body of other part of head, initial encounter Instructions: DI for Laceration Repair, DI for Closed Head Injury Activity Restrictions/Additional Instructions: See family doctor or go to urgent care in 8 days to remove 8 stitches on the right eyebrow. Clean wound daily with warm soap and water and apply topical antibiotic. Return if worse for any questions or concerns. May shower but no submersion of head under water. Prescriptions: No Action allopurinol 300 MG tablet 300 mg PO QDAY Qty: 0 RF: 0 metoprolol succinate 100 MG tablet extended release 24 hr 100 mg PO TID Qty: 0 RF: 0 telmisartan [Micardis] 80 MG tablet 80 mg PO Q DAY Qty: 0 RF: 0 atorvastatin 40 mg tablet 40 mg PO DAILY RF: 0 brimonidine 0.025 % drops EYE-LEFT RF: 0 hydrochlorothiazide 25 mg Tablet 25 mg PO DAILY RF: 0 Referrals: Viktoriya Umaña MD [Primary Care Provider] -
[2021-05-04] MEDS: TET,DIPH,PERTUSS(ACELL),VAC/PF 0.5 ML SYRINGE IM (01:16)
[2021-05-04 02:04] VITALS: PULSE 66; O2SAT 98
[2021-05-04] MEDS: LIDOCAINE 1% W/EPI 30 ML (02:10)
[2021-05-04] MEDS: BACITRACIN OINT 0.9 GM PCKT 1 APPLIC TOP (02:22)
[2021-05-04 02:27] VITALS: BP 125/76; PULSE 65; O2SAT 96
[2021-05-04 02:30] VITALS: PULSE 61; O2SAT 95
== END 2021-05-04 02:34 | disposition home or self-care (01) ==
PROVIDERS: Emergency Provider Emergency Medicine; PCP Student in an Organized Health Care Education/Training Program
DX: S01.81XA Laceration without foreign body of other part of head, initial encounter (principal); W01.198A Fall on same level from slipping, tripping and stumbling with subsequent striking against other object, initial encounter; Z23 Encounter for immunization
CPT/HCPCS: 12013; 70450; 70486; 72125; 90471; 99284; 90715

== ENCOUNTER → 2021-05-21 08:51 | Outpatient (CLI) | payer MEDICARE, OTHER, SELFPAY ==
[2021-05-21 10:14] LABS: Cholesterol 176 mg/dL (140-199); HDL Cholesterol 71 mg/dL (40-60); LDL Cholesterol Calculated 70 mg/dL (<100); Triglycerides 173 mg/dL (35-150)
== END ==
PROVIDERS: PCP Student in an Organized Health Care Education/Training Program; Referring Provider Internal Medicine Cardiovascular Disease; Visit Provider Internal Medicine Cardiovascular Disease
DX: E78.5 Hyperlipidemia, unspecified (principal)
CPT/HCPCS: 36415; 80061

== ENCOUNTER → 2021-10-23 09:39 | Outpatient (CLI) | payer MEDICARE, OTHER, SELFPAY ==
[2021-10-23 10:43] LABS: COVID19 -Nasal RAPID Negative (Negative)
== END ==
PROVIDERS: PCP Student in an Organized Health Care Education/Training Program; Visit Provider Family Medicine Sleep Medicine
DX: Z20.822 Contact with and (suspected) exposure to COVID-19 (principal)
CPT/HCPCS: 87635; C9803

== ENCOUNTER 2021-10-25 11:56 | Day surgery (SDC) | payer MEDICARE, OTHER, SELFPAY ==
--- NOTE | 2021-10-25 11:59 | PM.HP.1 ---
History of Present Illness History of Present Illness Date Patient Seen: 10/25/21 Chief complaint: SDC Narrative: 70 year old male comes in today for consideration of a screening colonoscopy. He has had 2 lifetime colonoscopies. Last colonoscopy in 2011, indicated for screening, significant for two 1-2 mml polyps in the ascending and rectum, both hyperplastic. There have been no lower GI symptoms suggesting disease such as change in bowel habits, bleeding, abdominal pain or anemia. There's been no family history of colon cancer or colon polyps. Overall health issues have been stable, including no major cardiac events for at least 6 weeks. PCP: Dr. Umaña Past Medical History: Chest wall pain, anterior CAD, S/P CABG HYPERTENSION HYPERLIPIDEMIA Retinal artery branch occlusion, left eye HEARING LOSS TREMOR, ESSENTIAL ARTHRITIS ALLERGIC RHINITIS CANCER, PROSTATE, HX OF Past surgical history: Appendectomy (1994) Prostatectomy (2007) Cataract Extraction, bilateral, (2016) C A B G x 3v (07/03/18) Colonoscopy x2 Family History: Father: Stroke, Diabetes, Hypertension Mother: Hypertension Siblings: Family Hx Diabetes Social History: Marital Status: - Jaida (1946) - Retired Occupation: Retired Education: B.A. degree 3-4 drinks per day Alcohol drinks/day: 4/day Patient History Medical History History of heart attack History of prostate cancer Hypertension Surgical History History of prostate surgery Hx of appendectomy Hx of heart bypass surgery No pertinent past surgical history Family & Social History Family History Father Hypertension Stroke Mother Hypertension Brother Hypertension Social History: household members spouse lives independently Yes Tobacco & Substance use: Smoking Status Never smoker alcohol intake current Meds Home Medications and Allergies Home Medications Medication Instructions Recorded Confirmed Type allopurinol 300 mg tablet 300 mg PO QDAY #0 03/02/13 10/22/20 History metoprolol succinate 100 mg 100 mg PO TID #0 05/19/17 10/22/20 History tablet,extended release 24 hr telmisartan 80 mg tablet (Micardis) 80 mg PO Q DAY #0 05/19/17 10/22/20 History hydrochlorothiazide 25 mg tablet 25 mg PO DAILY 07/02/18 10/22/20 History atorvastatin 40 mg tablet 40 mg PO DAILY 10/22/20 10/22/20 History brimonidine 0.025 % eye drops drp EYE-LEFT 10/22/20 10/22/20 History primidone 50 mg tablet mg 10/25/21 History Allergies Allergy/AdvReac Type Severity Reaction Status Date / Time Sulfa (Sulfonamide Allergy Mild Verified 10/22/20 14:58 Antibiotics) Review of Systems Review of Systems Narrative: All remaining ROS were reviewed and negative except as addressed. Exam Narrative Exam Narrative: GENERAL: Alert and oriented, appearing stated age and in no acute distress. HEENT: Head normocephalic/atraumatic. Extraocular movements intact. LUNGS: Clear to ausculation bilaterally, no wheezes, rhonchi or rales. CV: Normal S1 and S2 with regular rate and rhythm, no audible murmurs, rubs or gallops. ABDOMEN: Soft, non-tender, non-distended, no organomegaly. Positive bowel sounds. EXTREMITIES: No clubbing, cyanosis, or edema. NEURO: Cranial nerves II through XII grossly intact, no focal deficits. PSYCH: Alert and oriented x 3. SKIN: No concerning lesions. Assessment & Plan Assessment & Plan narrative: 1. History of hyperplastic colon polyps 2. Screening for colon cancer Plan for colonoscopy. The nature and character of the procedure as well as anticipated results were discussed. The possibility of not completing the procedure was also discussed. Possible complications including aspiration pneumonia, bleeding, perforation and reaction to medications either for sedation or preparation and missed lesions were discussed. Questions were answered and proceeding to the colonoscopy was elected. Informed consent signed.
--- NOTE | 2021-10-25 12:07 | PM.OP.COLON ---
Operative Date/Time/Diagnoses Date of procedure: 10/25/21 Procedure Notes SCOAP/Timeout: 1:10 p.m. Procedure in detail: ENDOSCOPIST: Viktoriya Umaña MD Sedation RN: Kamryn Alexandre RN Sedation start time: 1:10 p.m. Sedation end time: 1:23 p.m. PROCEDURE: Colonoscopy INDICATIONS: 1. History of colon polyps, hyperplastic 2. Screening for colon cancer MEDICATION: Levsin 0.125 mg sublingual, incremental doses of Versed and fentanyl until appropriate level sedation achieved. ASA CLASS: 2 CECAL WITHDRAWAL TIME: 6 minutes COMPLICATIONS: None. EXTENT OF PROCEDURE: Cecum. QUALITY OF PREP: Good with portions of liquid stool. PROCEDURE: Prior to insertion of the colonoscope, a digital rectal examination was accomplished with circumferential palpation of the distal rectal mucosa without significant findings being noted. The high-definition colonoscope was passed into the rectum in the usual fashion and advanced over to the cecum without difficulty. The ileocecal valve, appendiceal stoma, and medial wall all could be inspected and no abnormalities were seen. ASCENDING COLON: As the colonoscope was withdrawn, care was taken to expose and inspect the haustral folds and minor diverticulosis noted. HEPATIC FLEXURE: Minor diverticulosis, otherwise normal, no polyps, or other abnormalities. TRANSVERSE COLON: Minor diverticulosis, otherwise normal, no polyps, or other abnormalities. DESCENDING COLON: Moderate diverticulosis, otherwise normal, no polyps, or other abnormalities. SIGMOID COLON: Moderate diverticulosis, otherwise normal, no polyps, or other abnormalities. RECTUM: Normal. J maneuver was produced. There was no significant perianal disease. The J maneuver was broken. The remainder of the rectum was inspected and there was no external hemorrhoid disease. The scope was withdrawn. IMPRESSION: 1. Normal colonoscopy 2. Pancolonic diverticulosis, left greater than right PLAN: 1. Repeat colonoscopy in 10 years, as patient will be 80 at that time, it is also reasonable for this to be his last colonoscopy. The possibility of a missed lesion including a malignancy has been discussed with the patient previously. Potential alarm symptoms have been discussed and should be reported immediately.
[2021-10-25 12:19] VITALS: BP 148/87; PULSE 55; RESP 15; TEMP 36.1; O2SAT 99; BMI 27.8
[2021-10-25] MEDS: LACTATED RINGERS 1,000 ML 200 ML IV (12:25)
[2021-10-25] MEDS: HYOSCYAMINE 0.125 MG TABLET PO (12:25)
[2021-10-25] MEDS: MIDAZOLAM 5 MG/5 ML VIAL IV (13:27)
[2021-10-25 13:28] VITALS: BP 127/83; PULSE 53; RESP 18; TEMP 36; O2SAT 95
[2021-10-25] MEDS: fentaNYL 250 MCG/5 ML INJ IV (13:28)
[2021-10-25 13:33] VITALS: BP 127/81; PULSE 52; RESP 18; O2SAT 95
[2021-10-25 13:40] VITALS: BP 124/78; PULSE 54; RESP 18; O2SAT 96
[2021-10-25 14:05] VITALS: BP 122/80; PULSE 55; RESP 16; TEMP 36.1; O2SAT 96
== END 2021-10-25 14:15 | disposition home or self-care (01) ==
PROVIDERS: PCP Student in an Organized Health Care Education/Training Program; Referring Provider Student in an Organized Health Care Education/Training Program; Visit Provider Student in an Organized Health Care Education/Training Program
PROC: 0DJD8ZZ Inspection of Lower Intestinal Tract, Via Natural or Artificial Opening Endoscopic (ICD-10-PCS; CPT 45378; principal; 2021-10-25 13:00)
DX: Z12.11 Encounter for screening for malignant neoplasm of colon (principal); Z86.010 Personal history of colon polyps; K57.30 Diverticulosis of large intestine without perforation or abscess without bleeding
CPT/HCPCS: G0105; J2250; J3010

== ENCOUNTER → 2021-11-19 10:26 | Outpatient (ROUT) | payer MEDICARE, OTHER, SELFPAY ==
[2021-11-19 10:55] LABS: D Dimer 611 ng/mL (<230)
== END ==
PROVIDERS: PCP Student in an Organized Health Care Education/Training Program; Visit Provider Student in an Organized Health Care Education/Training Program
DX: M79.604 Pain in right leg (principal)
CPT/HCPCS: 85379

== ENCOUNTER → 2022-06-23 10:55 | Outpatient (CLI) | payer MEDICARE, OTHER, SELFPAY ==
[2022-06-23 12:33] LABS: Alanine Aminotransferase 30 IU/L (<50); Albumin 4.5 g/dL (3.5-5.0); Albumin Globulin Ratio 1.5 (1.0-2.8); Alkaline Phosphatase 71 U/L (38-126); Aspartate Aminotransferase 29 IU/L (17-59); BUN Creatinine Ratio 21.1 (6-22); Blood Urea Nitrogen 20 mg/dL (9-20); Carbon Dioxide 31 mmol/L (22-32); Chloride 101 mmol/L (98-107); Cholesterol 182 mg/dL (140-199); Estimated Glomerular Filt Rate > 60 mL/min (>60); Glucose 98 mg/dL (80-110); HDL Cholesterol 56 mg/dL (40-60); HEMOLYSIS < 15 (0-50); LDL Cholesterol Calculated 103 mg/dL (<100); Sodium 141 mmol/L (137-145); Total Protein 7.5 g/dL (6.3-8.2); Triglycerides 115 mg/dL (35-150); VLDL Cholesterol Calculated 23 mg/dL (2-30)
[2022-06-23 13:05] LABS: Prostate Specific Antigen < 0.064 ng/mL (0.10-4.00)
== END ==
PROVIDERS: PCP Family Medicine; Referring Provider Student in an Organized Health Care Education/Training Program; Visit Provider Student in an Organized Health Care Education/Training Program
DX: I10 Essential (primary) hypertension (principal); Z85.46 Personal history of malignant neoplasm of prostate; E78.5 Hyperlipidemia, unspecified; I25.810 Atherosclerosis of coronary artery bypass graft(s) without angina pectoris
CPT/HCPCS: 36415; 80053; 80061; 84153

== ENCOUNTER 2022-08-27 00:40 | Emergency (ER) | payer MEDICARE, OTHER, SELFPAY ==
[2022-08-27 00:40] VITALS: BP 180/91; PULSE 68; RESP 20; TEMP 36.8; O2SAT 95; BMI 27.3
[2022-08-27] MEDS: cephALEXin 250 MG PREPACK 1 BOTTLE MISC (01:13)
[2022-08-27] MEDS: TET,DIPH,PERTUSS(ACELL),VAC/PF 0.5 ML SYRINGE IM (01:13)
--- NOTE | 2022-08-27 01:17 | ED_ITS ---
HPI - Extremity Injury (Lower) General Chief Complaint: Extremity Injury, Lower Stated Complaint: fell down escalator @10 tonight lacerations on leg Time Seen by Provider: 08/27/22 00:47 Source: patient and family Mode of arrival: Ambulatory History of Present Illness HPI Narrative: 71-year-old male nonsmoker with history of hyperlipidemia and hypertension as well as DVT on Xarelto presents with his in the chief complaint of minor injuries to his right lower extremity after a ground level fall suffered a few hours ago. He had been in his normal state of health and he and his had just flown from [place] and were going up an escalator at the airport when his baggage became caught up in the escalator which caused him to fall down onto his . He denies any head neck or back pain. He denies any chest pain or shortness of breath. He denies any prodromal symptoms such as dizziness, weakness or lightheadedness. He denies any bony pain but does have some superficial abrasions and skin tears to his right lower extremity. He had been evaluated by paramedics and had a wrap put in place and was encouraged to follow-up. He states his tetanus will need to be updated. Related Data Home Medications Medication Instructions Recorded Confirmed metoprolol succinate 100 mg 100 mg PO BID ##0 05/19/17 03/26/22 tablet,extended release 24 hr telmisartan 80 mg tablet (Micardis) 80 mg PO Q DAY ##0 05/19/17 03/26/22 hydrochlorothiazide 25 mg tablet 25 mg PO DAILY 07/02/18 03/26/22 atorvastatin 40 mg tablet 40 mg PO DAILY 10/22/20 03/26/22 brimonidine 0.025 % eye drops 1 drp EYE-LEFT DAILY 10/22/20 03/26/22 primidone 50 mg tablet 150 mg BID 10/25/21 03/26/22 rivaroxaban 20 mg tablet (Xarelto) 20 mg PO DAILY 12/17/21 03/26/22 Previous Rx's Medication Instructions Recorded cephalexin 500 mg capsule 500 mg PO Q6H 7 days #28 caps 08/27/22 Allergies Allergy/AdvReac Type Severity Reaction Status Date / Time Sulfa (Sulfonamide Allergy Mild Verified 10/22/20 14:58 Antibiotics) amlodipine AdvReac Intermediate Verified 12/17/21 14:16 Review of Systems Review of Systems Narrative: GENERAL: Denies chills, fatigue, malaise, fever, sweats. HEENT: Denies sinus pain, ear pain, sore throat, difficulty swallowing, dizziness. RESPIRATORY: Denies dyspnea, cough, wheezing, hemoptysis, sputum. CARDIOVASCULAR: Denies chest pain, palpitations, orthopnea, edema, GASTROINTESTINAL: Denies nausea, vomiting, abdominal pain, diarrhea, constipation, melena. : Denies dysuria, frequency, incontinence, hematuria, urinary retention. MUSCULOSKELETAL: See HPI SKIN: See HPI NEUROLOGIC: Denies weakness, headache, numbness, change in speech, confusion, seizures, incoordination. PSYCHIATRIC: No concerning psychosocial issues. 12 point review of systems is negative except for those stated above Patient History Medical History History of heart attack History of prostate cancer Hypertension Surgical History History of prostate surgery Hx of appendectomy Hx of heart bypass surgery No pertinent past surgical history Family History Father Hypertension Stroke Mother Hypertension Brother Hypertension Social History marital status: household members: spouse lives independently: Yes occupational status: previously employed Smoking Status: Never smoker alcohol intake: current substance use type: does not use Smoking Status: Never smoker alcohol intake frequency: 0-2 drinks per day Substance Use Type: does not use Exam Narrative Exam Narrative: GENERAL: [71] year old patient appears stated age. Well-developed patient, in mild distress. GCS 15 HEAD: Atraumatic. Normocephalic. No hematoma, contusion, abrasion or evidence of depressed skull fracture EYES: Pupils equal round and reactive. Extraocular motions intact. No scleral icterus. No injection or drainage. ENT: Nose without bleeding, purulent drainage. Throat without erythema, tonsillar hypertrophy or exudate. Airway patent. NECK: Trachea midline. Non tender CARDIOVASCULAR: Regular rate and rhythm without murmurs, gallops, or rubs. RESPIRATORY: Clear to auscultation. Breath sounds equal bilaterally. No wheezes, rales, or rhonchi. GASTROINTESTINAL: Abdomen soft, non-tender, nondistended. EXTREMITIES: Superficial injuries to anterior right lower extremity, multiple small, superficial skin tears and abrasions, no lacerations which would require sutures or other specific intervention. Patient has full painless range of motion at foot, ankle, knee and hip. No bony tenderness BACK: Nontender without deformity or crepitance. No flank tenderness. NEURO: AOx3. SKIN: No rash or erythema of visible areas Initial Vital Signs Initial Vital Signs: Vital Signs Temperature 98.2 F 08/27/22 00:40 Pulse Rate 68 08/27/22 00:40 Respiratory Rate 20 08/27/22 00:40 Blood Pressure 180/91 H 08/27/22 00:40 Pulse Oximetry 95 08/27/22 00:40 Oxygen Delivery Method 08/27/22 00:40 Course Course Course Narrative: Wounds addressed by nursing, tetanus updated Orders Ordered: Discontinued Medications Cefazolin Sodium (Cephalexin 250 Mg Prepack) 1 bottle MISC SEEINSTR ONE Stop: 08/27/22 01:02 Last Admin: 08/27/22 01:13 Dose: 500 mg Documented By: PJ Diphtheria/Tetanus/Acell Pertussis (Tet,Diph,Pertuss(Acell),Vac/Pf 0.5 Ml Syringe) 0.5 ml IM .ONCE ONE Stop: 08/27/22 01:02 Last Admin: 08/27/22 01:13 Dose: 0.5 ml Documented By: PJ Vital Signs Vital signs: Vital Signs - 8 hr 08/27/22 00:40 Temperature 98.2 F Pulse Rate 68 Respiratory Rate 20 Blood Pressure 180/91 H Pulse Oximetry 95 Oxygen Delivery Method Room Air MDM - Extremity Injury (Lower) MDM Narrative Medical decision making narrative: [71-year-old male on anticoagulation with ground level fall, minor injuries to right lower extremity and no head injury, no neck or back pain] Multiple etiologies for patient's symptoms considered including, but not limited to: [Abrasion, laceration versus other] Prior Charts reviewed: Multiple prior emergency department notes Patient with minor injuries after mechanical ground level fall, though he is on Xarelto there is no indication for imaging given his full recall of the event and complete denial of any head injury. There is no bony pain on exam, wounds are superficial, no suture repair indicated. Findings and discharge diagnosis discussed with patient/family followed by verbalization of understanding Return precautions discussed with patient/family whom verbalize understanding of diagnosis and plan Discharge Plan Departure Patient Disposition: Home Clinical Impression: Laceration of right lower extremity Instructions: DI for Laceration Repair-Skin Closure Strips Activity Restrictions/Additional Instructions: *You have been diagnosed with [multiple superficial skin tear right lower extremity] *What to do: *Please continue to take your regular medications as directed. [x ] New medication prescriptions sent to your pharmacy: [[facility] ] [ ] New medication written as a paper prescription [ ] No new medications given *Please follow up with your primary care provider in 2-3 days, call for an appointment. Let them know you were seen in the Emergency Department and that we ask that you be seen in follow up. We will electronically transmit a record of today's note if your PCP is in our system *If you do not have a primary care provider please contact the [facility] Resource line at [phone]. They will ask some questions about your medical history and help get you set up with a doctor in the community. *Return to Emergency Department if you should have any new, worsening or concerning symptoms, such as [fever greater than 101 F, shaking chills, worsening pain, persistent vomiting or other bothersome symptoms] Prescriptions: New cephalexin 500 mg capsule 500 mg PO Q6H 7 Days Qty: 28 0RF No Action metoprolol succinate 100 MG tablet extended release 24 hr 100 mg PO BID Qty: 0 telmisartan [Micardis] 80 MG tablet 80 mg PO Q DAY Qty: 0 atorvastatin 40 mg tablet 40 mg PO DAILY brimonidine 0.025 % drops 1 drp EYE-LEFT DAILY hydrochlorothiazide 25 mg Tablet 25 mg PO DAILY primidone 50 mg tablet 150 mg BID Xarelto 20 mg Tablet 20 mg PO DAILY Rx Instructions: must administer with evening meal Referrals: Max Fisher MD [Primary Care Provider] - Stand Alone Forms: Patient Portal/API
[2022-08-27 01:50] VITALS: BP 135/88; PULSE 64; RESP 18; TEMP 36.2; O2SAT 97
== END 2022-08-27 02:25 | disposition home or self-care (01) ==
PROVIDERS: Emergency Provider Emergency Medicine; PCP Family Medicine
DX: S81.811A Laceration without foreign body, right lower leg, initial encounter (principal); W17.89XA Other fall from one level to another, initial encounter; Z23 Encounter for immunization
CPT/HCPCS: 90471; 99283; 90715

== ENCOUNTER → 2023-06-30 08:51 | Outpatient (CLI) | payer MEDICARE, OTHER, SELFPAY ==
[2023-06-30 09:58] LABS: Add Manual Diff / Slide Review NO; Basophils Absolute Auto 100 /uL (0-100); Eosinophils Absolute Auto 400 /uL (0-450); Eosinophils Percent Auto 4.4 % (2-4); Lymphocytes Absolute Auto 2100 /uL (1100-4500); Lymphocytes Percent Auto 23.5 % (25-40); Mean Corpuscular HGB Conc 34.1 % (30-36); Mean Corpuscular Hemoglobin 35.1 PG (26-34); Mean Corpuscular Volume 102.8 fL (80-100); Monocytes Absolute Auto 800 /uL (0-900); Monocytes Percent Auto 9.7 % (3-14); Neutrophils Absolute Auto 5400 /uL (1500-7000); Neutrophils Percent Auto 61.4 % (50-75); Platelet Count 164 X10^3/uL (150-400); Red Blood Cell Count 3.99 X10^6/uL (4.5-5.9); Red Cell Distribution Width 14.1 % (11.6-14.8); White Blood Cell Count 8.7 X10^3/uL (4.5-11.0)
[2023-06-30 10:24] LABS: BUN Creatinine Ratio 18.9 (6-22); Blood Urea Nitrogen 36 mg/dL (9-20); Calcium 10.8 mg/dL (8.4-10.2); Carbon Dioxide 29 mmol/L (22-32); Chloride 102 mmol/L (98-107); Cholesterol 149 mg/dL (140-199); Estimated Glomerular Filt Rate 37 mL/min (>60); Glucose 100 mg/dL (80-110); HDL Cholesterol 55 mg/dL (40-60); HEMOLYSIS < 15 (0-50); LDL Cholesterol Calculated 70 mg/dL (<100); Potassium 3.7 mmol/L (3.4-5.1); Sodium 140 mmol/L (137-145); Triglycerides 119 mg/dL (35-150)
== END ==
PROVIDERS: PCP Family Medicine; Referring Provider Internal Medicine Cardiovascular Disease; Visit Provider Internal Medicine Cardiovascular Disease
DX: E78.5 Hyperlipidemia, unspecified (principal); I25.10 Atherosclerotic heart disease of native coronary artery without angina pectoris
CPT/HCPCS: 36415; 80048; 80061; 85025

== ENCOUNTER 2023-12-02 07:23 | Inpatient (IN) | payer MEDICARE, OTHER, SELFPAY ==
[2023-12-02] VITALS (17 sets, daily range): BP systolic 94–124; BP diastolic 55–79; PULSE 57–83; RESP 14–22; TEMP 36.2–36.8; O2SAT 94–99; BMI 28.7; BMI 26.5
[2023-12-02 07:46] LABS: Add Manual Diff / Slide Review NO; Basophils Absolute Auto 100 /uL (0-100); Basophils Percent Auto 0.5 % (0-2); Eosinophils Absolute Auto 600 /uL (0-450); Eosinophils Percent Auto 5.4 % (2-4); Hematocrit 44.3 % (41-53); Lymphocytes Absolute Auto 1700 /uL (1100-4500); Lymphocytes Percent Auto 15.2 % (25-40); Mean Corpuscular HGB Conc 33.9 % (30-36); Mean Corpuscular Hemoglobin 34.7 PG (26-34); Mean Corpuscular Volume 102.4 fL (80-100); Monocytes Absolute Auto 1000 /uL (0-900); Monocytes Percent Auto 9.2 % (3-14); Neutrophils Absolute Auto 7500 /uL (1500-7000); Neutrophils Percent Auto 69.7 % (50-75); Platelet Count 156 X10^3/uL (150-400); Red Blood Cell Count 4.32 X10^6/uL (4.5-5.9); Red Cell Distribution Width 13.7 % (11.6-14.8); White Blood Cell Count 10.8 X10^3/uL (4.5-11.0)
[2023-12-02 07:52] LABS: Alanine Aminotransferase 22 IU/L (<50); Albumin 4.8 g/dL (3.5-5.0); Albumin Globulin Ratio 1.5 (1.0-2.8); Alkaline Phosphatase 78 U/L (38-126); Aspartate Aminotransferase 28 IU/L (17-59); Bilirubin Total 0.8 mg/dL (0.2-1.3); Blood Urea Nitrogen 34 mg/dL (9-20); Calcium 10.4 mg/dL (8.4-10.2); Carbon Dioxide 25 mmol/L (22-32); Chloride 105 mmol/L (98-107); Estimated Glomerular Filt Rate 35 mL/min (>60); Globulin 3.1 g/dL (1.7-4.1); Glucose 110 mg/dL (80-110); Potassium 3.2 mmol/L (3.4-5.1); Sodium 140 mmol/L (137-145); Total Protein 7.9 g/dL (6.3-8.2)
--- NOTE | 2023-12-02 07:57 | ED_ITS ---
HPI - Abdominal Pain General Chief Complaint: Abdominal Pain Stated Complaint: abd pain Time Seen by Provider: 12/02/23 07:56 Source: patient, RN notes reviewed and old records reviewed Mode of arrival: Family Vehicle Limitations: no limitations History of Present Illness HPI narrative: 72-year-old male history of pancreatitis in 2014, triple bypass in 2018, DVT, hypertension, dyslipidemia, CKD with prior appendectomy and prostatectomy with complaint of 2 days of abdominal pain. Patient does take a full-dose aspirin intermittently. Patient describes abdominal pain across the entire abdomen but more midline. States it does feel somewhat similar to when he would pancreatitis. States no fevers. No nausea or vomiting. Last bowel movement was yesterday morning. He has been passing flatus. He states no black or bloody stools. No dysuria, urgency frequency or your attention. Patient has not had any bruising or changes. He has chronic back pain but states no new changes. No lightheadedness or passing out. Patient notes he has been on Xarelto for DVTs in the past. He is currently off of it. No tobacco, 2 or 3 alcoholic drinks daily, no recreational drugs. Dr. Fisher is his primary care physician. Related Data Home Medications Medication Instructions Recorded Confirmed telmisartan 80 mg tablet (Micardis) 80 mg PO Q DAY ##0 05/19/17 12/03/23 brimonidine 0.025 % eye drops 1 drp EYE-LEFT DAILY 10/22/20 12/02/23 hydrochlorothiazide 12.5 mg tablet 12.5 mg PO DAILY 12/02/23 12/02/23 rosuvastatin 40 mg tablet 40 mg PO DAILY 12/02/23 12/02/23 metoprolol tartrate 50 mg tablet 50 mg PO BID 12/03/23 12/03/23 Allergies Allergy/AdvReac Type Severity Reaction Status Date / Time Sulfa (Sulfonamide Allergy Mild Verified 12/02/23 07:49 Antibiotics) amlodipine AdvReac Intermediate Verified 12/02/23 07:49 Review of Systems Review of Systems ROS Unobtainable: All systems reviewed & are unremarkable except as noted in HPI and below Patient History Medical History History of heart attack History of prostate cancer Hypertension Surgical History Hx of appendectomy History of prostate surgery Hx of heart bypass surgery No pertinent past surgical history Family History Father Hypertension Stroke Mother Hypertension Brother Hypertension Social History marital status: household members: spouse lives independently: Yes occupational status: previously employed Smoking Status: Never smoker alcohol intake: current substance use type: does not use Smoking Status: Never smoker alcohol intake frequency: 0-2 drinks per day Substance Use Type: does not use Exam Narrative Exam Narrative: GENERAL: Alert and oriented x three, male in mild distress. HEENT: Head normocephalic, atraumatic, EOMI, pupils reactive, face symmetric, moist mucous membranes NECK: Supple, full range of motion CARDIOVASCULAR: Regular rate and rhythm without murmurs, rubs or gallops. RESPIRATORY: Breath sounds equal bilaterally, no wheezes rales or rhonchi. ABDOMEN: Soft, generalized abdominal tenderness but greatest in bilateral lower quadrants left greater than right. Normoactive bowel sounds all 4 quadrants. No guarding or rebound, rigidity, no mass : No CVA tenderness EXTREMITIES: Normal range of motion, no clubbing or edema. Neurovascularly intact NEUROLOGICAL: Cranial nerves II through XII grossly intact. Moving all extremities SKIN: Warm, dry, no petechiae, no rashes or lesions. Initial Vital Signs Initial Vital Signs: Vital Signs Pulse Rate 69 12/02/23 07:30 Pulse Oximetry 97 12/02/23 07:30 Course Orders Ordered: Acetaminophen (Acetaminophen 325 Mg Tablet) 650 mg PO Q6H PRN PRN Reason: Fever/Mild Pain (1-3) Sodium Chloride (Normal Saline 0.9%) 1,000 mls @ 150 mls/hr IV CONT RADHA Last Admin: 12/03/23 12:31 Dose: 150 mls/hr Documented By: Infusion: 12/03/23 12:16 Dose: Infused Documented By: Admin: 12/03/23 05:35 Dose: 150 mls/hr Documented By: Infusion: 12/03/23 05:35 Dose: Infused Documented By: Admin: 12/02/23 23:00 Dose: 150 mls/hr Documented By: Infusion: 12/02/23 23:00 Dose: Infused Documented By: Admin: 12/02/23 16:30 Dose: 150 mls/hr Documented By: Admin: 12/02/23 13:30 Dose: Not Given Documented By: GUME POTASSIUM CHLORIDE IN WATER (Potassium Cl 10 Meq/100 Ml Oumou) 10 meq in 100 mls @ 100 mls/hr IV Q1H [facility] Stop: 12/03/23 14:59 Last Admin: 12/03/23 13:58 Dose: 100 mls/hr Documented By: Infusion: 12/03/23 13:32 Dose: Infused Documented By: Admin: 12/03/23 12:32 Dose: 100 mls/hr Documented By: Infusion: 12/03/23 12:28 Dose: Infused Documented By: Admin: 12/03/23 11:28 Dose: 100 mls/hr Documented By: Morphine Sulfate (Morphine 4 Mg/Ml Inj) 2 mg IV Q2H PRN PRN Reason: Pain, Severe (7-10) Last Admin: 12/03/23 08:35 Dose: 2 mg Documented By: Admin: 12/03/23 05:38 Dose: 2 mg Documented By: MARGARET Naloxone HCl (Naloxone 0.4 Mg/Ml Vial) 0.2 mg IV Q2MIN PRN PRN Reason: Opiate Reversal Brimonidine 0.025 % (Drops) 1 drop EYE-LEFT DAILY [facility] Last Admin: 12/03/23 09:00 Dose: Not Given Documented By: Ondansetron HCl (Ondansetron 4 Mg/2 Ml Inj) 4 mg IV Q8HR PRN PRN Reason: Nausea And Vomiting Rivaroxaban (Rivaroxaban 10 Mg Tablet) 20 mg PO DAILY [facility] Last Admin: 12/03/23 08:16 Dose: Not Given Documented By: Sodium Biphosphate/Sodium Phosphate (Fleets Enema) 1 each OK PRN PRN PRN Reason: Constipation Discontinued Medications Sodium Chloride (Normal Saline 0.9%) 1,000 mls @ 150 mls/hr IV CONT [facility] Last Infusion: 12/02/23 16:29 Dose: Infused Documented By: Infusion: 12/02/23 11:10 Dose: 150 mls/hr Documented By: [facility] Admin: 12/02/23 08:24 Dose: 150 mls/hr Documented By: ABBIE Morphine Sulfate (Morphine 2 Mg/Ml Inj) 2 mg IV NOW ONE Stop: 12/02/23 08:09 Last Admin: 12/02/23 08:27 Dose: 2 mg Documented By: ABBIE Morphine Sulfate (Morphine 4 Mg/Ml Inj) 2 mg IV Q2HR RADHA Last Admin: 12/02/23 14:06 Dose: 2 mg Documented By: JORGE A Ondansetron HCl (Ondansetron 4 Mg/2 Ml Inj) 4 mg IV NOW PRN PRN Reason: Nausea And Vomiting Last Admin: 12/02/23 08:23 Dose: 4 mg Documented By: ABBIE Ondansetron HCl (Ondansetron 4 Mg Odt) 4 mg PO NOW PRN PRN Reason: Nausea And Vomiting Vital Signs Vital signs: Vital Signs - 8 hr 12/02/23 07:30 12/02/23 07:31 12/02/23 07:31 Temperature Pulse Rate 69 68 Respiratory Rate Blood Pressure 121/69 Pulse Oximetry 97 97 Oxygen Delivery Method 12/02/23 07:40 12/02/23 08:00 12/02/23 08:00 Temperature 98.3 F Pulse Rate 69 60 Respiratory Rate 19 19 Blood Pressure 121/69 94/64 Pulse Oximetry 97 95 Oxygen Delivery Method Room Air 12/02/23 08:26 12/02/23 08:26 12/02/23 08:29 Temperature Pulse Rate 60 58 L Respiratory Rate 16 15 Blood Pressure 99/57 L Pulse Oximetry 97 95 Oxygen Delivery Method Room Air 12/02/23 08:29 12/02/23 08:30 12/02/23 08:30 Temperature Pulse Rate 58 L Respiratory Rate 14 Blood Pressure 98/57 L 103/59 L Pulse Oximetry 94 Oxygen Delivery Method Room Air 12/02/23 08:32 12/02/23 08:32 Temperature Pulse Rate 58 L Respiratory Rate 14 Blood Pressure 103/59 L Pulse Oximetry 95 Oxygen Delivery Method MDM - Abdominal Pain Lab Data 12/03/23 04:22 12/03/23 04:22 Labs: Lab Results 12/02/23 Range/Units 07:31 WBC 10.8 (4.5-11.0) X10^3/uL RBC 4.32 L (4.5-5.9) X10^6/uL Hgb 15.0 (13.5-17.5) g/dL Hct 44.3 (41-53) % MCV 102.4 H (80-100) fL MCH 34.7 H (26-34) PG MCHC 33.9 (30-36) % RDW 13.7 (11.6-14.8) % Plt Count 156 (150-400) X10^3/uL Neut % (Auto) 69.7 (50-75) % Lymph % (Auto) 15.2 L (25-40) % Coleman % (Auto) 9.2 (3-14) % Eos % (Auto) 5.4 H (2-4) % Baso % (Auto) 0.5 (0-2) % Neut # (Auto) 7500 H (6723-9436) /uL Lymph # (Auto) 1700 (2053-9485) /uL Coleman # (Auto) 1000 H (0-900) /uL Eos # (Auto) 600 H (0-450) /uL Baso # (Auto) 100 (0-100) /uL Sodium 140 (137-145) mmol/L Potassium 3.2 L (3.4-5.1) mmol/L Chloride 105 (98-107) mmol/L Carbon Dioxide 25 (22-32) mmol/L BUN 34 H (9-20) mg/dL Creatinine 2.00 H (0.66-1.25) mg/dL Estimated GFR 35 L (>60) mL/min BUN/Creatinine Ratio 17.0 (6-22) Glucose 110 (80-110) mg/dL Calcium 10.4 H (8.4-10.2) mg/dL Total Bilirubin 0.8 (0.2-1.3) mg/dL AST 28 (17-59) IU/L ALT 22 (<50) IU/L Alkaline Phosphatase 78 (38-126) U/L Total Protein 7.9 (6.3-8.2) g/dL Albumin 4.8 (3.5-5.0) g/dL Globulin 3.1 (1.7-4.1) g/dL Albumin/Globulin Ratio 1.5 (1.0-2.8) Lipase 6997 H (23-300) U/L Imaging Data CT scan - abdomen/pelvis: Radiologist's Impression: Néstor Jones??72??M??1950 ? Allergy/Adv: Sulfa (Sulfonamide Antibiotics), amlodipine (More??) Close Abdomen Ultrasound (Signed) Michael Blanco - 12/02/23 Abdomen/Pelvis CT (Signed) Clemente Whipple - 12/02/23 Outside DI 11/21/21 Telemetry Strips 10/25/[address] (Signed) Olea,Junaid - 05/04/[address] (Signed) Olea,Junaid - 05/04/[address] (Signed) Olea,Junaid - 05/04/21 Myocardial Perfusion Scan Nuc Med (Signed) Alexandre Pachecorigu - 12/14/20 Echocardiogram Ultrasound (Signed) CoralRoberthroseanna - 11/26/20 Chest X-Ray (Signed) Kaveh Benítez - 11/13/20 Vascular Ultrasound (Signed) Shahab Gamboa - 10/08/20 Chest X-Ray (Signed) NiaLindy valledoron - 10/26/18 Chest CTA (Signed) Javier Peterson - 07/02/18 Chest X-Ray (Signed) Javier Peterson - 07/02/18 Telemetry Strips 07/02/18 Launch?[place] [address] CT Scan Report Signed Patient: Néstor Jones MR#: [id number] : 1950 Acct:[id number] Age/Sex: 72 / M Date of Service: 12/02/23 Loc: ED Accession Number: [id number] Procedure: CT kidney ureter bladder (KUB) Ordering Provider: Karlie Villatoro D.O. PROCEDURE: CT KIDNEY URETER BLADDER (KUB) INDICATIONS: abd pain, b/l lower, hx pancreatitis, no BM x 24 +flatus TECHNIQUE: Axial sections were acquired from the lung bases to the pubic symphysis. Coronal and sagittal reformats were performed. For radiation dose reduction, the following was used: automated exposure control, adjustment of mA and/or kV according to patient size. COMPARISON: [facility], CT, ABDOMEN/PELVIS WITH CONTRAST, 03/02/2013, 20:45. FINDINGS: Image quality: Diagnostic. Lower Chest: Post median sternotomy. URINARY: Right Kidney: No stones or hydronephrosis. Right Ureter: No hydroureter. Left Kidney: No stones or hydronephrosis. Small left renal cyst. Left Ureter: No hydroureter. Bladder: Decompressed. No stones. ABDOMEN: Liver: No contour-deforming solid mass. Gallbladder: Not distended. No stone. Biliary ducts: No biliary dilation. Pancreas: Fat stranding near the head of the pancreas and duodenum, (2/39). Trace fluid tracking inferiorly at the right retroperitoneum. No loculated fluid collection. No pancreatic ductal dilatation seen. No pancreatic calcification. Spleen: Size is within normal limits. Adrenal Glands: No adrenal nodules. Stomach and Bowel: Normal colonic caliber, without significant wall thickening. Diverticulosis. No diverticulitis. The appendix is not identified. Peritoneum: No abnormal intraperitoneal fluid. No free air. Ventral Wall: No hernia. Abdominal Nodes: No enlarged retroperitoneal or mesenteric lymph nodes. Vessels: Saccular abdominal aortic aneurysm measuring 3.7 cm, (4/26), previously 2.4 cm in 2013. Saccular aortic aneurysm measuring 3 cm, (2/47), previously 2.4 cm in 2013. Extensive calcified atherosclerotic plaque. PELVIS: Pelvic Organs: Prostate gland appears atrophic. Vas deferens calcifications. Most frequently seen in diabetic patients. Pelvic Nodes: Unremarkable. Miscellaneous: Fat containing right inguinal hernia seen. Bones: No suspicious osseous lesion. IMPRESSION: 1. Stranding near the head of the pancreas and duodenum. This is most concerning for interstitial edematous pancreatitis or duodenitis. No loculated fluid collection. 2. No kidney stones. No hydronephrosis. 3. Abdominal aortic aneurysms measuring 3.7 cm and 3 cm. Increased compared to 2013. Dictated by: Clemente Whipple M.D. on 12/02/2023 at 8:34 Approved by: Clemente Whipple M.D. on 12/02/2023 at 8:54 US - abdomen: Radiologist's Impression: Néstor Jones??72??M??1950 ? Allergy/Adv: Sulfa (Sulfonamide Antibiotics), amlodipine (More??) Close Abdomen Ultrasound (Signed) Michael Blanco - 12/02/23 Abdomen/Pelvis CT (Signed) Clemente Whipple - 12/02/23 Outside DI 11/21/21 Telemetry Strips 10/25/[address] (Signed) Junaid Olea - 05/04/[address] (Signed) Yayo Oleaic - 05/04/[address] (Signed) Olea,Junaid - 05/04/21 Myocardial Perfusion Scan Nuc Med (Signed) Ashwin Pacheco - 12/14/20 Echocardiogram Ultrasound (Signed) Raciel Moncada - 11/26/20 Chest X-Ray (Signed) Kaveh Benítez - 11/13/20 Vascular Ultrasound (Signed) Keerthi Gamboae - 10/08/20 Chest X-Ray (Signed) Cordelia Kramerangelinadoron - 10/26/18 Chest CTA (Signed) Javier Peterson - 07/02/18 Chest X-Ray (Signed) Javier Peterson - 07/02/18 Telemetry Strips 07/02/18 Launch?Image [address] [address] Ultrasound Report Signed Patient: Néstor Jones MR#: [id number] : 1950 Acct:[id number] Age/Sex: 72 / M Date of Service: 12/02/23 Loc: ED Accession Number: [id number] Procedure: US abdomen limited Ordering Provider: Karlie Villatoro D.O. PROCEDURE: US ABDOMEN LIMITED INDICATIONS: ruq, pancreatitis, has hx of same TECHNIQUE: Real-time scanning was performed of the abdominal and retroperitoneal organs, with image documentation. COMPARISON: [facility], CT, CT KIDNEY URETER BLADDER (KUB), 12/02/2023, 8:15. FINDINGS: Liver: No focal mass. Mildly echogenic. However, there is no fatty infiltration noted on CT. Gallbladder: No gallstones. Focal wall thickening measuring 3.9 mm. No pericholecystic fluid or sonographic Cabral sign. Biliary ducts: Intrahepatic bile ducts are non-dilated. Extrahepatic bile duct caliber measures 5.2 mm. Normal is 6-7 mm or less in diameter, or 10 mm or less post-cholecystectomy. Pancreas: Not visualized secondary to overlying bowel gas Miscellaneous: No free abdominal fluid. IMPRESSION: Focal gallbladder wall thickening, nonspecific. Otherwise unremarkable study. No gallstone disease. Dictated by: Michael Blanco M.D. on 12/02/2023 at 8:54 Approved by: Michael Blanco M.D. on 12/02/2023 at 8:56 ECG Data Attestation: I personally reviewed and interpreted this ECG as follows: Prior ECG tracings: available for review Interpretation: Sinus rhythm rate of 64 OK 192 QRS of 98 QTC 416. Patient has prior from 07/03/2018 appears similar. MDM Narrative Medical decision making narrative: 72-year-old male with complaint of abdominal pain generalized but more in the lower abdomen palpation. Patient does note he has a history of pancreatitis he states it does feel somewhat similar. Show white count of 10.8 hemoglobin of 15, hematocrit of 44 macrocytic platelets of 156. Chemistry shows sodium of 140 potassium of 3.2, chloride of 105 CO2 of 25 with a BUN of 34 creatinine 2 similar to prior in June of 2023 1.9. Calcium slightly elevated at 10.4 glucose of 110 normal LFTs, lipase is 6997. Urine CT KUB patient has chronic kidney disease with a GFR of 35. At trending your head of the pancreas and duodenum trace fluid tracking fairly right retroperitoneum no loculated fluid collection no pancreatic ductal dilation no pancreatic calcification, saccular abdominal aortic aneurysm measuring 3.7 cm previously 2.4 and 2013 saccular aortic aneurysm measuring 3 cm previously 2.4 cm in 2013. Abdominal ultrasound was obtained and shows focal gallbladder wall thickening nonspecific no gallstone disease hepatic and extrahepatic bile ducts are all normal sized. No pericholecystic fluid or sonographic cabral sign. Patient states pain is very similar to his prior pancreatitis with a lipase in the 6000 range and changes consistent with pancreatitis on CT plan for admission with observation. Did update patient about aneurysm and need for follow-up. Spoke with Dr. Fisher, who accepts for admission. Plan for fluids and pain management. Discharge Plan Departure Patient Disposition: Admitted As Inpatient Clinical Impression: Pancreatitis Admit Date/Time: 12/02/23 10:04 Admit Provider: Max Fisher
--- NOTE | 2023-12-02 08:07 | DI.CT.S_ITS ---
PROCEDURE: CT KIDNEY URETER BLADDER (KUB) INDICATIONS: abd pain, b/l lower, hx pancreatitis, no BM x 24 +flatus TECHNIQUE: Axial sections were acquired from the lung bases to the pubic symphysis. Coronal and sagittal reformats were performed. For radiation dose reduction, the following was used: automated exposure control, adjustment of mA and/or kV according to patient size. COMPARISON: [facility], CT, ABDOMEN/PELVIS WITH CONTRAST, 03/02/2013, 20:45. FINDINGS: Image quality: Diagnostic. Lower Chest: Post median sternotomy. URINARY: Right Kidney: No stones or hydronephrosis. Right Ureter: No hydroureter. Left Kidney: No stones or hydronephrosis. Small left renal cyst. Left Ureter: No hydroureter. Bladder: Decompressed. No stones. ABDOMEN: Liver: No contour-deforming solid mass. Gallbladder: Not distended. No stone. Biliary ducts: No biliary dilation. Pancreas: Fat stranding near the head of the pancreas and duodenum, (2/39). Trace fluid tracking inferiorly at the right retroperitoneum. No loculated fluid collection. No pancreatic ductal dilatation seen. No pancreatic calcification. Spleen: Size is within normal limits. Adrenal Glands: No adrenal nodules. Stomach and Bowel: Normal colonic caliber, without significant wall thickening. Diverticulosis. No diverticulitis. The appendix is not identified. Peritoneum: No abnormal intraperitoneal fluid. No free air. Ventral Wall: No hernia. Abdominal Nodes: No enlarged retroperitoneal or mesenteric lymph nodes. Vessels: Saccular abdominal aortic aneurysm measuring 3.7 cm, (4/26), previously 2.4 cm in 2013. Saccular aortic aneurysm measuring 3 cm, (2/47), previously 2.4 cm in 2013. Extensive calcified atherosclerotic plaque. PELVIS: Pelvic Organs: Prostate gland appears atrophic. Vas deferens calcifications. Most frequently seen in diabetic patients. Pelvic Nodes: Unremarkable. Miscellaneous: Fat containing right inguinal hernia seen. Bones: No suspicious osseous lesion. IMPRESSION: 1. Stranding near the head of the pancreas and duodenum. This is most concerning for interstitial edematous pancreatitis or duodenitis. No loculated fluid collection. 2. No kidney stones. No hydronephrosis. 3. Abdominal aortic aneurysms measuring 3.7 cm and 3 cm. Increased compared to 2013. Dictated by: Clemente Whipple M.D. on 12/02/2023 at 8:34 Approved by: Clemente Whipple M.D. on 12/02/2023 at 8:54
[2023-12-02 08:11] LABS: HEMOLYSIS 16 (0-50); Lipase 6997 U/L (23-300)
[2023-12-02] MEDS: ONDANSETRON 4 MG/2 ML INJ IV (08:23)
[2023-12-02] MEDS: SODIUM CHLORIDE 0.9% 1,000 ML 150 ML IV ×3 (08:24→23:00)
--- NOTE | 2023-12-02 08:26 | DI.US.S_ITS ---
PROCEDURE: US ABDOMEN LIMITED INDICATIONS: ruq, pancreatitis, has hx of same TECHNIQUE: Real-time scanning was performed of the abdominal and retroperitoneal organs, with image documentation. COMPARISON: [facility], CT, CT KIDNEY URETER BLADDER (KUB), 12/02/2023, 8:15. FINDINGS: Liver: No focal mass. Mildly echogenic. However, there is no fatty infiltration noted on CT. Gallbladder: No gallstones. Focal wall thickening measuring 3.9 mm. No pericholecystic fluid or sonographic Cabral sign. Biliary ducts: Intrahepatic bile ducts are non-dilated. Extrahepatic bile duct caliber measures 5.2 mm. Normal is 6-7 mm or less in diameter, or 10 mm or less post-cholecystectomy. Pancreas: Not visualized secondary to overlying bowel gas Miscellaneous: No free abdominal fluid. IMPRESSION: Focal gallbladder wall thickening, nonspecific. Otherwise unremarkable study. No gallstone disease. Dictated by: Michael Blanco M.D. on 12/02/2023 at 8:54 Approved by: Michael Blanco M.D. on 12/02/2023 at 8:56
[2023-12-02] MEDS: MORPHINE 2 MG/ML INJ IV (08:27)
--- NOTE | 2023-12-02 09:36 | PC.NURSE ---
Obtained patient care. Resting with at bedside. Awaiting consult with Dr Espana. Patient states pain is 6/10 but manageable declines additional meds at this time
--- NOTE | 2023-12-02 11:54 | PC.NURSE ---
Pt to room 222 via w/c from ER. Pt able to transfer self to bed. Pt denies pain, nausea, or shortness of breath. Spouse Billy is at the bedside. Med. Student currently meeting with Pt. Pt up to bathroom to void. Pt oriented to room, call light, bed controls, and tv controls.
[2023-12-02] MEDS: MORPHINE 4 MG/ML INJ 2 MG IV (14:06)
--- NOTE | 2023-12-02 18:58 | PM.HP.1 ---
History of Present Illness History of Present Illness Date Patient Seen: 12/02/23 Time Patient Seen: 12:45 Chief complaint: abd pain Narrative: Patient is a 72-year-old male with a history of pancreatitis in the past who presents with a few days of increasing abdominal pain. Started with some mild back pain and flank pain he felt like. And then started having more intense abdominal pain over the last week or so. He has had increasing abdominal pain over the last 48 hours in the right side. Last night it woke him up to the point where he was not able to stay. He finally woke his up and said we need to go to the hospital. Describes the pain as dull tender the touch from sternum to [place] bilaterally did not take any medicines does not know anything makes it better coming to the hospital. He describes it as a 7/10. Apparently had a similar episode which felt quite a bit the same 10 years ago where he is admitted for 5-7 days. He has had no fevers no chills no nausea no vomiting no change in his bowel movements no blood in his stool no shortness a breath or chest pain. Patient drinks 3 alcoholic drinks a night. Without other changes. [facility] Medical History History of heart attack History of prostate cancer Hypertension Surgical History Hx of appendectomy History of prostate surgery Hx of heart bypass surgery No pertinent past surgical history Family History Father Hypertension Stroke Mother Hypertension Brother Hypertension Social History marital status: household members: spouse lives independently: Yes occupational status: previously employed Smoking Status: Never smoker alcohol intake: current substance use type: does not use Meds Home Medications and Allergies Home Medications Medication Instructions Recorded Confirmed Type metoprolol succinate 100 mg 100 mg PO BID ##0 05/19/17 12/02/23 History tablet,extended release 24 hr telmisartan 80 mg tablet (Micardis) 80 mg PO Q DAY ##0 05/19/17 12/02/23 History brimonidine 0.025 % eye drops 1 drp EYE-LEFT DAILY 10/22/20 12/02/23 History rivaroxaban 20 mg tablet (Xarelto) 20 mg PO DAILY 12/17/21 12/02/23 History hydrochlorothiazide 12.5 mg tablet 12.5 mg PO DAILY 12/02/23 12/02/23 History rosuvastatin 40 mg tablet 40 mg PO DAILY 12/02/23 12/02/23 History Allergies Allergy/AdvReac Type Severity Reaction Status Date / Time Sulfa (Sulfonamide Allergy Mild Verified 12/02/23 07:49 Antibiotics) amlodipine AdvReac Intermediate Verified 12/02/23 07:49 Review of Systems Review of Systems Narrative: Negative except for above Exam Vital Signs (past 8 hours): - 12/02/23 11:00 12/02/23 11:00 12/02/23 12:00 Temperature 97.1 F L Pulse Rate 57 L 62 Respiratory Rate 15 16 Blood Pressure 112/60 124/79 Pulse Oximetry 96 99 Oxygen Flow Rate 0 Oxygen Delivery Method Room Air Oxygen Flow Rate 0 Narrative Exam Narrative: Alert elderly male in no acute distress. Lying comfortably in bed. Mucous membranes moist. Neck supple without adenopathy. No JVD or bruits. Lungs are clear heart is regular rate and rhythm abdomen is soft mildly distended positive bowel sounds has pretty significant tenderness across the upper abdomen maybe slightly worse in the right upper quadrant. No rebound guarding no masses. Extremities without cyanosis clubbing or edema. Neurologic exam is nonfocal Objective Labs 12/02/23 07:31 12/02/23 07:31 Labs: Laboratory Results - last 24 hr 12/02/23 07:31 WBC 10.8 RBC 4.32 L Hgb 15.0 Hct 44.3 MCV 102.4 H MCH 34.7 H MCHC 33.9 RDW 13.7 Plt Count 156 Neut % (Auto) 69.7 Lymph % (Auto) 15.2 L [place] % (Auto) 9.2 Eos % (Auto) 5.4 H Baso % (Auto) 0.5 Neut # (Auto) 7500 H Lymph # (Auto) 1700 [place] # (Auto) 1000 H Eos # (Auto) 600 H Baso # (Auto) 100 Sodium 140 Potassium 3.2 L Chloride 105 Carbon Dioxide 25 BUN 34 H Creatinine 2.00 H Estimated GFR 35 L BUN/Creatinine Ratio 17.0 Glucose 110 Calcium 10.4 H Total Bilirubin 0.8 AST 28 ALT 22 Alkaline Phosphatase 78 Total Protein 7.9 Albumin 4.8 Globulin 3.1 Albumin/Globulin Ratio 1.5 Lipase 6997 H Assessment & Plan Assessment & Plan narrative: Pancreatitis. Patient no evidence of stones or blocked biliary duct. Bilirubin is normal. No evidence of infection. Probable secondary to alcohol-induced. Although there has been no change in his baseline alcohol would be most likely at this time. We discussed with the patient. . Pain control, fluids, bowel rest. Rechecked tomorrow. Follow from there. Hope will be able to start clear liquids tomorrow Mild irritation of gallbladder wall. No evidence of stones no evidence of blockage etiology is unclear but will follow. Does not appear to be infected significantly at this time and I do not think this is the cause of his pancreatitis but we will watch closely. Consult surgery if any change or doubt. White count tomorrow. Acute on chronic renal failure. Fluid hydration most likely prerenal. CT scan shows no abnormality. Will recheck in a.m.. Continue hydration. Will need fluid hydration anyway with NPO status. History of alcohol use. Unlikely to withdrawal but will watch closely. Certainly is probably the cause of his pancreatitis but will need to watch. Aortic aneurysm. Mild changes I do not think this has anything to do with his current situation. Still pretty significantly small but will need follow-up as outpatient. History of DVT. Will continue his usual Xarelto. Hypertension stable. Coronary artery disease stable. DVT prophylaxis no need secondary to anticoagulation for previous DVT. Code status full. Disposition. I suspect this will be 3-4 days at the very least but will have to see how he turns around. Last time was 7 days. Will follow closely. Quality VTE Deep Vein Thrombosis/Pulmonary Embolism Present on Admission: No
[2023-12-03 04:35] LABS: Add Manual Diff / Slide Review NO; Basophils Absolute Auto 100 /uL (0-100); Basophils Percent Auto 0.8 % (0-2); Eosinophils Absolute Auto 300 /uL (0-450); Eosinophils Percent Auto 3.7 % (2-4); Hematocrit 40.3 % (41-53); Hemoglobin 13.7 g/dL (13.5-17.5); Lymphocytes Absolute Auto 1300 /uL (1100-4500); Lymphocytes Percent Auto 16.3 % (25-40); Mean Corpuscular HGB Conc 33.9 % (30-36); Mean Corpuscular Hemoglobin 34.7 PG (26-34); Mean Corpuscular Volume 102.1 fL (80-100); Monocytes Absolute Auto 900 /uL (0-900); Monocytes Percent Auto 10.7 % (3-14); Neutrophils Absolute Auto 5400 /uL (1500-7000); Neutrophils Percent Auto 68.5 % (50-75); Platelet Count 125 X10^3/uL (150-400); Red Blood Cell Count 3.94 X10^6/uL (4.5-5.9); Red Cell Distribution Width 13.7 % (11.6-14.8); White Blood Cell Count 7.9 X10^3/uL (4.5-11.0)
[2023-12-03 04:52] LABS: Alanine Aminotransferase 16 IU/L (<50); Albumin 3.9 g/dL (3.5-5.0); Albumin Globulin Ratio 1.5 (1.0-2.8); Alkaline Phosphatase 67 U/L (38-126); Aspartate Aminotransferase 21 IU/L (17-59); BUN Creatinine Ratio 16.4 (6-22); Bilirubin Total 0.9 mg/dL (0.2-1.3); Blood Urea Nitrogen 26 mg/dL (9-20); Calcium 9.1 mg/dL (8.4-10.2); Carbon Dioxide 23 mmol/L (22-32); Chloride 110 mmol/L (98-107); Estimated Glomerular Filt Rate 46 mL/min (>60); Globulin 2.6 g/dL (1.7-4.1); Glucose 88 mg/dL (80-110); HEMOLYSIS < 15 (0-50); Potassium 3.2 mmol/L (3.4-5.1); Sodium 142 mmol/L (137-145); Total Protein 6.5 g/dL (6.3-8.2)
[2023-12-03 05:10] LABS: Lipase 5825 U/L (23-300)
[2023-12-03] MEDS: SODIUM CHLORIDE 0.9% 1,000 ML 150 ML IV ×3 (05:35→19:22)
[2023-12-03] MEDS: MORPHINE 4 MG/ML INJ 2 MG IV ×2 (05:38→08:35)
[2023-12-03 07:18] VITALS: O2SAT 95
[2023-12-03 08:00] VITALS: BP 106/64; PULSE 86; RESP 16; TEMP 36.2; O2SAT 96
--- NOTE | 2023-12-03 08:50 | P.PN_ITS ---
Subjective Subjective Date Patient Seen: 12/03/23 Time Patient Seen: 08:40 Interval history: CC: pancreatitis Reports he is feeling better this morning after a night NPO on IVF. Cr is improving he reports pain is now maybe 4/10 and controllable with morphine this is his second bout so he came in early. Exam Vital Signs (past 8 hours): Oxygen Delivery Method Room Air Oxygen Flow Rate 0 Narrative Exam Narrative: laying in bed alert watching TV Const Other: well nourished Resp Other: moving air well speaking complete sentences Cardio Other: regular rate and rhythm well perfused with SCDs on GI Other: soft only mildly tender in epigastric region active bowel sounds Neuro Other: alert oriented Objective Labs 12/03/23 04:22 12/03/23 04:22 Labs: Laboratory Results - last 24 hr 12/03/23 04:22 WBC 7.9 RBC 3.94 L Hgb 13.7 Hct 40.3 L MCV 102.1 H MCH 34.7 H MCHC 33.9 RDW 13.7 Plt Count 125 L Neut % (Auto) 68.5 Lymph % (Auto) 16.3 L [place] % (Auto) 10.7 Eos % (Auto) 3.7 Baso % (Auto) 0.8 Neut # (Auto) 5400 Lymph # (Auto) 1300 [place] # (Auto) 900 Eos # (Auto) 300 Baso # (Auto) 100 Sodium 142 Potassium 3.2 L Chloride 110 H Carbon Dioxide 23 BUN 26 H Creatinine 1.59 H Estimated GFR 46 L BUN/Creatinine Ratio 16.4 Glucose 88 Calcium 9.1 Total Bilirubin 0.9 AST 21 ALT 16 Alkaline Phosphatase 67 Total Protein 6.5 Albumin 3.9 Globulin 2.6 Albumin/Globulin Ratio 1.5 Lipase 5825 H [facility] Medical History History of heart attack History of prostate cancer Hypertension Surgical History Hx of appendectomy History of prostate surgery Hx of heart bypass surgery No pertinent past surgical history Family History Father Hypertension Stroke Mother Hypertension Brother Hypertension Social History marital status: household members: spouse lives independently: Yes occupational status: previously employed Smoking Status: Never smoker alcohol intake: current substance use type: does not use Assessment & Plan Assessment & Plan narrative: #Acute pancreatitis Number improving, agree alcohol possible etiology here. Much improved on IVF will try some sips and chips some water if that does ok maybe clears Pain control, fluids, bowel rest. #Mild irritation of gallbladder wall agree mild - monitor for now no RUQ ttp #Acute on chronic renal failure Cr improving continue aggressive IVF some component of dehydration also possible #History of alcohol use Some headaches today but not too bad. Possible withdrawal - monitor closely Certainly is probably a cause of his pancreatitis. #Aortic aneurysm unrelated, not in range for intervention - f/up as outpt #History of DVT continue xarelto, SCDs #Hypertension Doing well, reintroduce home meds as able #Coronary artery disease stable continue home meds when able DVT prophylaxis: xarelto and SCDs Code: full PCP: Galileo Fisher dispo: pending clinical improvement Quality VTE Deep Vein Thrombosis/Pulmonary Embolism Present on Admission: No
[2023-12-03] MEDS: POTASSIUM CHLORIDE IN WATER 10 MEQ/100 ML PIGGYBACK 100 MEQ IV ×4 (11:28→15:00)
[2023-12-03 13:00] VITALS: BP 117/70; PULSE 77; RESP 16; TEMP 36.6; O2SAT 99
--- NOTE | 2023-12-03 13:26 | CM.DANOTE ---
DCP Assessment Note Pt is a 72yo male, resident of [place], presented with abdominal pain to be determined as pancreatitis. Pt has a hx of pancreatitis and was previously admitted at for 7 days. Pt lives with , Jaida, in a house. Pt's primary care provider is Dr. Max Fisher and insurance is Medicare and [employer]. Reviewed chart and team rounds for pt's medical status and initial discharge needs. SHAKER OPERATOR met w/patient at bedside; introduced self and role. Pt was found in lying in bed, alert and oriented, cooperative with assessment. Pt confirmed his living arrangement and explains he is very independent at baseline. Pt does not identify any dc needs at this time. Plan: Per provider note, pt to be monitored for approximately 3-4 days or until pain is managed. Pt's will be able to transport at time of dc. CM Team following for any pending dc needs that may arise. MUKUL Em Discharge Planning/Care Management CM Discharge Assessment Start: 12/03/23 13:24 Freq: Status: Active Protocol: Document 12/03/23 13:24 MW (Rec: 12/03/23 13:25 MW [id number]) Discharge Planning Assessment Assigned Senior Recruiter MICHAEL Cuevas DPOA/Assigned Designee Name Nayeli Sena Contact Information [phone] Advance Directives? Yes Advance Directives on File No History Provided By Patient,Medical Record Has Patient been admitted in last 30 No days? Prior Living Arrangements House Household Members spouse Type of transporation used prior to Drives own vehicle admit Independent with ADL's Yes Is patient alert and oriented? Yes Barriers to Discharge No Discharge Plan Home Transportation Arrangement Pt's is able to transport at me. Whiteboard Updated in Patient Room with Yes name and ext. # of Senior Recruiter Comment [phone] Please Provide Date Initial DC 12/03/23 Assessment Was Performed Next Review Type Continued Stay Review
[2023-12-03 15:03] VITALS: TEMP 36.9
[2023-12-03] MEDS: ACETAMINOPHEN 325 MG TABLET 650 MG PO ×2 (15:03→21:42)
[2023-12-03 19:00] VITALS: O2SAT 98
[2023-12-03 20:00] VITALS: BP 140/86; PULSE 89; RESP 17; TEMP 35.7; O2SAT 98
[2023-12-04] MEDS: SODIUM CHLORIDE 0.9% 1,000 ML 150 ML IV (01:57)
[2023-12-04 02:09] LABS: Appearance Urine UA CLEAR; Bilirubin Urine UA NEGATIVE (NEGATIVE); Color Urine UA YELLOW; Glucose Urine UA NEGATIVE (Negative); Ketones Urine UA NEGATIVE (NEGATIVE); Leukocyte Esterase Urine UA NEGATIVE (NEGATIVE); Nitrite Urine UA NEGATIVE (Negative); Occult Blood Urine UA 2+ (Negative); Protein Urine UA 2+ (Negative); Specific Gravity Urine UA 1.015 (1.000-1.035); Urobilinogen Urine UA 0.2 E.U./dL (0.2); pH Urine UA 5.5 (4.5-8.0)
[2023-12-04 02:15] LABS: Amorphous Sediment Urine 1+; Granular Casts Urine 5-10/LPF; Hyaline Casts Urine 0-1/LPF; Mucus Urine 1+ (Negative); RBC Urine 0-1/HPF (0-5/HPF); Squamous Epithelial Cell Urine 0-1 /HPF (0-5/HPF); Urine Volume 10mL (spun)
[2023-12-04 02:16] LABS: WBC Urine 0-1/HPF (0-5/HPF)
[2023-12-04 02:17] LABS: Bacteria Urine Occasional (0-1); Culture Indicated Urine Cult Not Indicated
[2023-12-04 05:31] LABS: BUN Creatinine Ratio 14.6 (6-22); Blood Urea Nitrogen 20 mg/dL (9-20); Calcium 8.4 mg/dL (8.4-10.2); Carbon Dioxide 22 mmol/L (22-32); Chloride 111 mmol/L (98-107); Estimated Glomerular Filt Rate 55 mL/min (>60); Glucose 96 mg/dL (80-110); HEMOLYSIS < 15 (0-50); Potassium 3.4 mmol/L (3.4-5.1); Sodium 140 mmol/L (137-145)
[2023-12-04 07:00] VITALS: O2SAT 96
[2023-12-04 08:00] VITALS: BP 144/88; PULSE 85; RESP 16; TEMP 36.1; O2SAT 98
[2023-12-04] MEDS: METOPROLOL IR 50 MG TABLET PO ×2 (08:31→20:22)
[2023-12-04] MEDS: BRIMONIDINE 0.025% 1 EACH EYE-LEFT (08:31)
[2023-12-04] MEDS: ACETAMINOPHEN 325 MG TABLET 650 MG PO ×3 (08:32→20:21)
[2023-12-04 09:02] LABS: Lipase 9688 U/L (23-300)
--- NOTE | 2023-12-04 13:25 | PM.PN.1 ---
Subjective Subjective Date Patient Seen: 12/04/23 Time Patient Seen: 13:25 Interval history: Patient seen in follow-up pancreatitis renal failure hypertension. Patient overall is feeling better today. Less pain. No nausea no vomiting. Otherwise no new changes or complaints. Exam Vital Signs (past 8 hours): - 12/04/23 08:00 Temperature 97.0 F L Pulse Rate 85 Respiratory Rate 16 Blood Pressure 144/88 H Pulse Oximetry 98 Oxygen Delivery Method Room Air Oxygen Flow Rate 0 Narrative Exam Narrative: Alert male smiling interactive in no acute distress Skin is without jaundice. No rash. Normal turgor. Mucous membranes moist. Neck supple without adenopathy. Lungs are clear. Heart is regular rate and rhythm. Abdomen is soft positive bowel sounds with right upper quadrant tenderness no rebound guarding no masses much improved from yesterday. Objective Labs 12/03/23 04:22 12/04/23 05:00 Labs: Laboratory Results - last 24 hr 12/04/23 12/04/23 02:00 05:00 Sodium 140 Potassium 3.4 Chloride 111 H Carbon Dioxide 22 BUN 20 Creatinine 1.37 H Estimated GFR 55 L BUN/Creatinine Ratio 14.6 Glucose 96 Calcium 8.4 Lipase 9688 H D Urine Color Yellow Urine Appearance Clear Urine pH 5.5 Ur Specific [place] 1.015 Urine Protein 2+ H Urine Glucose (UA) Negative Urine Ketones Negative Urine Occult Blood 2+ H Urine Nitrate Negative Urine Bilirubin Negative Urine Urobilinogen 0.2 Ur Leukocyte Esterase Negative Urine RBC 0-1/hpf Urine WBC 0-1/hpf Ur Squamous Epith Cells 0-1 /hpf Amorphous Sediment 1+ Urine Bacteria Occasional (0-1) Hyaline Casts 0-1/lpf Granular Casts 5-10/lpf Urine Mucus 1+ H Ur Culture Indicated? Cult not indicated Vol Urine Centrifuged 10ml (spun) PFSH Medical History History of heart attack History of prostate cancer Hypertension Surgical History Hx of appendectomy History of prostate surgery Hx of heart bypass surgery No pertinent past surgical history Family History Father Hypertension Stroke Mother Hypertension Brother Hypertension Social History marital status: household members: spouse lives independently: Yes occupational status: previously employed Smoking Status: Never smoker alcohol intake: current substance use type: does not use Assessment & Plan Assessment & Plan narrative: Acute pancreatitis. Had started diet because he was feeling better but lipase is up to 9000. Clinically is improved so not really understanding this completely feel like this is secondary to his alcohol but no other issues. I wonder about possible infection but he has not acting infected. He does have the gallbladder wall irritation. And it all really is more right upper quadrant tenderness. Will have to see how things go it certainly seems to be improving. At this point will see how things go. I am going back to clear liquids. We will re-evaluate in morning. Recheck lipase and follow. Acute on chronic renal failure. We will restart fluids at 100 cc an hour and follow. Patient understands. Questions answered. Goals discussed. Recheck in a.m.. Mild irritation of gallbladder wall. I do not think this is secondary to significant infection but if continues to worsen may need to repeat ultrasound to make sure stable. He understands will call if change. History of DVT. Patient has not been taking Xarelto for years. Will discontinue. Aortic aneurysm. Discussed with the patient what this represents will need to follow as outpatient. Hypertension. Will start medication and follow. History of hypokalemia. Stable at this point we will recheck in a.m.. Coronary artery disease. Stable. No evidence of significant issue. DVT prophylaxis. I think he is low risk will continue SCDs Code status full. Disposition. Clinically improving but numbers are. Will see what the next 24 hours rings. They understand questions answered Quality VTE Deep Vein Thrombosis/Pulmonary Embolism Present on Admission: No
[2023-12-04] MEDS: POTASSIUM CHLORIDE 20 MEQ TAB 40 MEQ PO (14:26)
[2023-12-04] MEDS: SODIUM CHLORIDE 0.9% 1,000 ML 100 ML IV (14:26)
--- NOTE | 2023-12-04 15:08 | CM.DPC ---
DCP Cont: Per MD, pt's pain seems to be managed and pt feeling better but Lipase increased and changing back to clears and not yet stable for discharge. Plan: SW to follow closely for likely d/c home with spouse in 1-2 days pending labs and any further identified discharge planning needs. MICHAEL Dias
[2023-12-04 19:00] VITALS: O2SAT 97
[2023-12-04 20:00] VITALS: BP 148/85; PULSE 82; RESP 17; TEMP 36.3; O2SAT 97
[2023-12-05] MEDS: SODIUM CHLORIDE 0.9% 1,000 ML 100 ML IV ×3 (00:45→20:51)
[2023-12-05 05:08] LABS: Alanine Aminotransferase 15 IU/L (<50); Albumin 3.2 g/dL (3.5-5.0); Albumin Globulin Ratio 1.2 (1.0-2.8); Alkaline Phosphatase 65 U/L (38-126); Aspartate Aminotransferase 24 IU/L (17-59); BUN Creatinine Ratio 12.5 (6-22); Bilirubin Total 0.8 mg/dL (0.2-1.3); Blood Urea Nitrogen 15 mg/dL (9-20); Calcium 8.4 mg/dL (8.4-10.2); Carbon Dioxide 21 mmol/L (22-32); Chloride 115 mmol/L (98-107); Estimated Glomerular Filt Rate > 60 mL/min (>60); Globulin 2.6 g/dL (1.7-4.1); Glucose 97 mg/dL (80-110); HEMOLYSIS < 15 (0-50); Potassium 3.4 mmol/L (3.4-5.1); Sodium 140 mmol/L (137-145); Total Protein 5.8 g/dL (6.3-8.2)
[2023-12-05 05:49] LABS: Lipase 3015 U/L (23-300)
[2023-12-05 07:00] VITALS: BP 137/87; PULSE 74; RESP 20; TEMP 37.2; O2SAT 96; O2SAT 98
[2023-12-05] MEDS: BRIMONIDINE 0.025% 1 EACH EYE-LEFT (07:45)
[2023-12-05] MEDS: ACETAMINOPHEN 325 MG TABLET 650 MG PO ×2 (07:45→20:23)
[2023-12-05] MEDS: POTASSIUM CHLORIDE 20 MEQ TAB 40 MEQ PO (07:45)
[2023-12-05] MEDS: METOPROLOL IR 50 MG TABLET PO ×2 (07:45→20:23)
--- NOTE | 2023-12-05 09:43 | P.PN_ITS ---
Subjective Subjective Date Patient Seen: 12/05/23 Time Patient Seen: 09:43 Interval history: Patient's clinical course and care to this point reviewed with Dr. Fisher last evening Patient's seem to be improving clinically and was slowly re fed but had a significant jump in his lipase without a whole lot of symptoms. Still some concern about right upper quadrant source of symptoms with minimal findings on imaging of the gallbladder wall etcetera This morning lipase is nicely down to the lowest level it has been since admission at 3000+. Patient remains afebrile. Hemodynamically stable Patient remains quite asymptomatic. Exam Vital Signs (past 8 hours): - 12/05/23 07:00 Temperature 98.9 F Pulse Rate 74 Respiratory Rate 20 Blood Pressure 137/87 Pulse Oximetry 96 Oxygen Delivery Method Room Air Oxygen Flow Rate 0 Objective Labs 12/03/23 04:22 12/05/23 04:30 Labs: Laboratory Results - last 24 hr 12/05/23 04:30 Sodium 140 Potassium 3.4 Chloride 115 H Carbon Dioxide 21 L BUN 15 Creatinine 1.20 Estimated GFR > 60 BUN/Creatinine Ratio 12.5 Glucose 97 Calcium 8.4 Total Bilirubin 0.8 AST 24 ALT 15 Alkaline Phosphatase 65 Total Protein 5.8 L Albumin 3.2 L Globulin 2.6 Albumin/Globulin Ratio 1.2 Lipase 3015 H [facility] Medical History History of heart attack History of prostate cancer Hypertension Surgical History Hx of appendectomy History of prostate surgery Hx of heart bypass surgery No pertinent past surgical history Family History Father Hypertension Stroke Mother Hypertension Brother Hypertension Social History marital status: household members: spouse lives independently: Yes occupational status: previously employed Smoking Status: Never smoker alcohol intake: current substance use type: does not use Assessment & Plan Assessment & Plan narrative: 1. Pancreatitis-patient clinically seems stable. Given the biochemical relapse with re feeding I think we need to go super slow with this but probably can advanced slowly through the course of the day. I think we should focus more on his clinical symptoms than on his lab results. This is assuming he remains clinically stable hemodynamically afebrile etcetera, etcetera. 2. Acute on chronic renal failure-renal function improved on blood work this morning. Approaching baseline if not already there with a creatinine of 1.2. Continue to push oral fluids. I think I would persist with IV fluids for another 24-36 hours while attempting to increase his oral intake 3. Question gallbladder issue-patient's clinical symptoms do not seem to fit that at this time. No lab work to support biliary tract issues at this time. If further concern consider MRCP etcetera Quality VTE Deep Vein Thrombosis/Pulmonary Embolism Present on Admission: No [facility] PROFEE Charge codes Subsequent inpatient/observation care: [id number]
[2023-12-05 20:00] VITALS: BP 149/96; PULSE 85; RESP 17; TEMP 36.7; O2SAT 98
[2023-12-05 20:25] VITALS: O2SAT 98
[2023-12-06 04:20] LABS: BUN Creatinine Ratio 9.6 (6-22); Blood Urea Nitrogen 11 mg/dL (9-20); Calcium 8.4 mg/dL (8.4-10.2); Carbon Dioxide 19 mmol/L (22-32); Chloride 116 mmol/L (98-107); Estimated Glomerular Filt Rate > 60 mL/min (>60); Glucose 94 mg/dL (80-110); HEMOLYSIS < 15 (0-50); Potassium 3.4 mmol/L (3.4-5.1); Sodium 140 mmol/L (137-145)
[2023-12-06 04:42] LABS: Lipase 3419 U/L (23-300)
[2023-12-06] MEDS: SODIUM CHLORIDE 0.9% 1,000 ML 100 ML IV (06:34)
[2023-12-06 07:00] VITALS: BP 149/89; PULSE 69; RESP 20; TEMP 36.3; O2SAT 97; O2SAT 98
[2023-12-06] MEDS: BRIMONIDINE 0.025% 1 EACH EYE-LEFT (08:09)
[2023-12-06] MEDS: POTASSIUM CHLORIDE 20 MEQ TAB 40 MEQ PO (08:09)
[2023-12-06] MEDS: METOPROLOL IR 50 MG TABLET PO (08:09)
--- NOTE | 2023-12-06 10:14 | PM.PN.1 ---
Subjective Subjective Date Patient Seen: 12/06/23 Time Patient Seen: 10:14 Interval history: Uneventful day yesterday. Patient tolerated full liquids without any symptoms at all Lab work this morning is stable. Lipase still in excess of 3000 but essentially unchanged Vital signs stable Exam Vital Signs (past 8 hours): - 12/06/23 07:00 Temperature 97.3 F L Pulse Rate 69 Respiratory Rate 20 Blood Pressure 149/89 H Pulse Oximetry 97 Oxygen Flow Rate 0 Oxygen Delivery Method Room Air Oxygen Flow Rate 0 Objective Labs 12/03/23 04:22 12/06/23 03:40 Labs: Laboratory Results - last 24 hr 12/06/23 03:40 Sodium 140 Potassium 3.4 Chloride 116 H Carbon Dioxide 19 L BUN 11 Creatinine 1.14 Estimated GFR > 60 BUN/Creatinine Ratio 9.6 Glucose 94 Calcium 8.4 Lipase 3419 H PFSH Medical History History of heart attack History of prostate cancer Hypertension Surgical History Hx of appendectomy History of prostate surgery Hx of heart bypass surgery No pertinent past surgical history Family History Father Hypertension Stroke Mother Hypertension Brother Hypertension Social History marital status: household members: spouse lives independently: Yes occupational status: previously employed Smoking Status: Never smoker alcohol intake: current substance use type: does not use Assessment & Plan Assessment & Plan narrative: 1. Pancreatitis-patient is clinically quite stable. Advance diet further this morning and if remained stable likely can discharge after lunch this afternoon. Patient is admonished to discontinue any use of alcohol whatsoever which is likely at least a contributing factor if not the sole source of his pancreatitis 2. Acute kidney injury-numbers much improved. Will discontinue IV fluids. 3. History of DVT-patient had self discontinued his anticoagulation at home in which was not continued during this hospitalization. No need to continue this at discharge therefore Quality VTE Deep Vein Thrombosis/Pulmonary Embolism Present on Admission: No [facility] Charge codes Subsequent inpatient/observation care: [id number]
--- NOTE | 2023-12-06 11:08 | PC.NURSE ---
Discharge note: Discharge instructions given to patient, discussed importance of lifestyle modifications including diet and alcohol use. Discussed importance of F/U with Dr. Fisher in 2 weeks, and signs of worsening symptoms. Home via private vehicle accompanied by spouse.
--- NOTE | 2023-12-06 11:19 | CM.DPNOTE ---
DCP Note AD COPY WRITER reviewed EMR. Per chart review, pt medically cleared to dc home today. Per RN, on way to transport pt soon. No CM needs. AD COPY WRITER met briefly with pt in room. Reports no needs/denies ETOH needs. Spouse on way to transport home. Plan: home with spouse today, close OP f/u with PCP recommended. CM team will continue to follow as needed. Kayleen Finn, MICHAEL
--- NOTE | 2023-12-10 08:29 | P.DS_ITS ---
History of Present Illness History of Present Illness Date Patient Seen: 12/06/23 Time Patient Seen: 10:55 Chief complaint: abd pain Narrative: Patient is a 72-year-old male with a history of pancreatitis in the past who presents with a few days of increasing abdominal pain. Started with some mild back pain and flank pain he felt like. And then started having more intense abdominal pain over the last week or so. He has had increasing abdominal pain over the last 48 hours in the right side. Last night it woke him up to the point where he was not able to stay. He finally woke his up and said we need to go to the hospital. Describes the pain as dull tender the touch from sternum to [place] bilaterally did not take any medicines does not know anything makes it better coming to the hospital. He describes it as a /10. Apparently had a similar episode which felt quite a bit the same 10 years ago where he is admitted for 5-7 days. He has had no fevers no chills no nausea no vomiting no change in his bowel movements no blood in his stool no shortness a breath or chest pain. Patient drinks 3 alcoholic drinks a night. Without other changes. {from Dr. Fisher's H&P} Discharge Providers Provider Date of admission: 12/02/23 10:04 Discharge Date: 12/06/23 Primary care physician: Max Fisher MD Discharge provider: Jordin Cardona MD Summary Hospital Course Discharge Diagnosis: 1. Acute pancreatitis, resolved 2. Acute kidney injury, resolved 3. History of DVT, no recurrence Hospital Course: Patient was admitted as above. Placed NPO with IV fluid and parental meds for nausea and pain. Patient had really no recurrent symptoms. He was re fed and while he had no recurrent symptoms his lipase numbers actually doubled or more, therefore he had his diet reduced and he was continued to be monitored clinically. Lipase numbers did fall with this. He was re fed and while lipase numbers remained abnormal they did not increase. Patient remained clinically asymptomatic Therefore by the afternoon of the 05 of December he was felt to have recovered from his pancreatitis and was discharged home to follow a careful low fat low residue diet No other active issues were identified. Patient has mild acute kidney injury resolved with the IV fluids administered while he was NPO Patient will have close follow up with his PCP Dr. Fisher Status at Discharge Cognitive/behavioral status at discharge: at baseline, oriented Functional status at discharge: independent ambulation Overall status at discharge: patient is progressing back to baseline Time Spent with Patient Time spent: Less than 30 minutes Exam Vital Signs (past 8 hours): Oxygen Delivery Method Room Air Oxygen Flow Rate 0 Objective Labs 12/03/23 04:22 12/06/23 03:40 [facility] Medical History History of heart attack History of prostate cancer Hypertension Surgical History Hx of appendectomy History of prostate surgery Hx of heart bypass surgery No pertinent past surgical history Family History Father Hypertension Stroke Mother Hypertension Brother Hypertension Social History marital status: household members: spouse lives independently: Yes occupational status: previously employed Smoking Status: Never smoker alcohol intake: current substance use type: does not use Discharge Plan Discharge Plan Patient Disposition: Home Provider Discharge Comment: Call/return for increasing abdominal pain, discontinue alcohol intake Discharge orders & Medications Prescriptions: Continued telmisartan [Micardis] 80 MG tablet 80 mg PO Q DAY Qty: 0 brimonidine 0.025 % drops 1 drp EYE-LEFT DAILY rosuvastatin 40 mg tablet 40 mg PO DAILY hydrochlorothiazide 12.5 mg Tablet 12.5 mg PO DAILY metoprolol tartrate 50 mg tablet 50 mg PO BID Follow up/Referrals: Max Fisher MD [Primary Care Provider] - 2 Weeks Discharge Health Status Multidrug resistant organism: No MDRO Diet/Activity/Treatments Diet: Diet as Tolerated and Low-fat Visit Report/Discharge Packet Instructions: Eating a Diet Low in Saturated Fat, Trans Fat, and Cholesterol, Pancreatitis (Alternative Therapy), Acute Pancreatitis, DI for Pancreatitis Stand Alone Forms: Patient Portal/API, Stroke Signs & Symptoms Discharge Data Primary Care Provider: Max Fisher Quality VTE Deep Vein Thrombosis/Pulmonary Embolism Present on Admission: No [facility]H PROFEE Charge Codes Discharge inpatient/observation: 26605
== END 2023-12-06 11:45 | disposition home or self-care (01) | DRG 439 ==
LOC: ED 09:58 → AC 10:06
PROVIDERS: Internal Medicine; Admitting Provider Family Medicine; Emergency Provider Emergency Medicine; PCP Family Medicine; Referring Provider Emergency Medicine; Visit Provider Family Medicine
DX: K85.20 Alcohol induced acute pancreatitis without necrosis or infection (principal); N17.9 Acute kidney failure, unspecified; I25.10 Atherosclerotic heart disease of native coronary artery without angina pectoris; I12.9 Hypertensive chronic kidney disease with stage 1 through stage 4 chronic kidney disease, or unspecified chronic kidney disease; N18.9 Chronic kidney disease, unspecified; I71.40 Abdominal aortic aneurysm, without rupture, unspecified; Z86.718 Personal history of other venous thrombosis and embolism; Z79.01 Long term (current) use of anticoagulants
CPT/HCPCS: 36415; 74176; 76705; 80048; 80053; 81001; 83690; 85025; 93005; 93010; 96374; 96375; 99232; 99233; 99284; J2270; J2405

== ENCOUNTER → 2024-08-01 08:04 | Outpatient (CLI) | payer MEDICARE, OTHER, SELFPAY ==
[2023-12-02 11:40] VITALS: BMI 26.5
[2024-08-01 10:26] LABS: Hematocrit 44.4 % (41-53); Hemoglobin 14.6 g/dL (13.5-17.5); Mean Corpuscular HGB Conc 32.8 % (30-36); Mean Corpuscular Hemoglobin 34.7 PG (26-34); Mean Corpuscular Volume 105.7 fL (80-100); Platelet Count 175 X10^3/uL (150-400); Red Cell Distribution Width 14.1 % (11.6-14.8); White Blood Cell Count 7.1 X10^3/uL (4.5-11.0)
[2024-08-01 10:53] LABS: BUN Creatinine Ratio 18.2 (6-22); Blood Urea Nitrogen 28 mg/dL (9-20); Calcium 10.2 mg/dL (8.4-10.2); Carbon Dioxide 28 mmol/L (22-32); Chloride 106 mmol/L (98-107); Cholesterol 155 mg/dL (140-199); Estimated Glomerular Filt Rate 47 mL/min (>60); Glucose 100 mg/dL (80-110); HDL Cholesterol 60 mg/dL (40-60); HEMOLYSIS < 15 (0-50); LDL Cholesterol Calculated 70 mg/dL (<100); Potassium 3.8 mmol/L (3.4-5.1); Sodium 142 mmol/L (137-145); Triglycerides 127 mg/dL (35-150)
== END ==
PROVIDERS: PCP Family Medicine; Referring Provider Internal Medicine Cardiovascular Disease; Visit Provider Internal Medicine Cardiovascular Disease
DX: E78.5 Hyperlipidemia, unspecified (principal); I25.10 Atherosclerotic heart disease of native coronary artery without angina pectoris
CPT/HCPCS: 36415; 80048; 80061; 85027

== ENCOUNTER → 2025-01-18 13:40 | Outpatient (CLI) | payer MEDICARE, OTHER, SELFPAY ==
[2023-12-02 11:40] VITALS: BMI 26.5
--- NOTE | 2025-01-18 13:42 | DI.ECHO.S_ITS ---
[facility]---------+ [facility] : : [address] : : [place] : : [id number] : : Phone: [phone] Echocardiogram Report + + :Name: GREGORIA MENDOZA Study Date: 01/18/2025 Height: 70 in : :[facility] ReadingLocation: Weight: 185 lb : : Gender: Male BSA: 2.0 m2 : :: 1950 Age: 74 yrs BP: 147/88 mmHg: :Reason For Study: MURMUR : :Ordering Physician: JENI, : :MICHELLE Performed By: Akin Adams : :Referring: MICHELLE PACHECO : + + Interpretation Summary 1) Normal left ventricular thickness, size, wall motion, and systolic function (EF 60-65%). 2) Mildly enlarged right ventricle with normal function. 3) There is mild aortic stenosis (valve area 1.9cm2, mean gradient 11mmHg). 4) There is mild to moderate aortic regurgitation. 5) There is mild to moderate tricuspid regurgitation. 6) The right ventricular systolic pressure is estimated to be at least 48 mmHg based on an estimated right atrial pressure of 3 mm Hg. 7) Compared to the Echo done 11/26/2020, mild aortic stenosis is present on this study. Procedure: A two-dimensional transthoracic echocardiogram with color flow and Doppler was performed. The study quality was technically good. Comparison is made with the echocardiogram of 11/26/2020. The patient was in normal sinus rhythm during the exam. Left Ventricle: The left ventricle is normal in size. There is normal left ventricular wall thickness. There is no ventricular septal defect visualized. The ejection fraction is estimated to be 60-65%. There are no focal wall motion abnormalities. Right Ventricle: The right ventricle is mildly dilated. The right ventricular systolic function is normal. Atria: The left atrium is borderline dilated. Right atrial size is normal. There is no Doppler evidence for an interatrial shunt. Mitral Valve: There is mild mitral annular calcification. The mitral valve leaflets appear normal. There is no evidence of stenosis, fluttering, or prolapse. There is trace mitral regurgitation. Aortic Valve: The aortic valve is trileaflet. There is mild aortic valve sclerosis. The peak aortic velocity is 2.36 m/sec. The calculated aortic valve area is 1.9 cm2. There is mild aortic stenosis. There is mild to moderate aortic regurgitation. Tricuspid Valve: The tricuspid valve leaflets are thin and pliable. There is mild to moderate tricuspid regurgitation. The right ventricular systolic pressure is estimated to be at least 48 mmHg based on an estimated right atrial pressure of 3 mm Hg. Pulmonic Valve: The pulmonic valve leaflets are thin and pliable; valve motion is normal. There is no pulmonic valvular regurgitation. Great Vessels: The aortic root is normal size. The ascending aorta is at the upper limits of normal in size. The pulmonary artery is normal size. The IVC is of normal diameter and collapses greater than 50% with a sniff. This suggests a low right atrial pressure of 3 mm Hg. Pericardium/ Pleura There is no pericardial effusion. There is no pleural effusion. MMode/2D Measurements & Calculations LVIDd: 4.8 cm LVOT diam: 2.1 cm LVIDs: 3.1 cm Ao root diam: 3.4 cm FS: 34.7 % asc Aorta Diam: 3.8 cm EPSS: 0.55 cm IVSd: 1.0 cm LVPWd: 1.0 cm LV [place]. diameter/BSA (cm/m^2): 2.4 LV sys. diameter/BSA (cm/m^2): 1.5 LA A2 area: 17.5 cm2 RA long axis: 5.1 cm LA A4 area: 26.1 cm2 RA area: 14.7 cm2 LA length (vol): 6.4 cm RA vol: 36.5 ml LA vol: 60.0 ml RA : 18.1 ml/m2 LA vol index: 29.7 ml/m2 IVC diam: 2.0 cm RVD1 (basal): 4.7 cm RVD2 (mid): 3.5 cm TAPSE: 2.0 cm Doppler Measurements & Calculations Ao V2 max: 236.4 cm/sec LVOT Max Sean: 128.9 cm/sec Ao V2 mean: 152.9 cm/sec LV V1 max P.6 mmHg Ao max P.3 mmHg LV V1 VTI: 30.3 cm Ao mean P.8 mmHg AN(I,D): 2.2 cm2 Ao V2 VTI: 50.0 cm AN(V,D): 1.9 cm2 sev ratio: 0.61 AN indexed to BSA (cm^2/m^2): 1.1 AI P1/2t: 381.6 msec AI dec slope: 364.9 cm/sec2 MV E max sean: 60.8 cm/sec TR max sean: 334.0 cm/sec MV A max sean: 75.3 cm/sec TR max P.6 mmHg MV E/A: 0.81 PA V2 max: 103.2 cm/sec Med Peak E' Sean: 4.7 cm/sec PA V2 mean: 74.6 cm/sec E/E' med: 13.0 PA mean P.4 mmHg Lat Peak E' Sean: 9.4 cm/sec PA pr(Accel): 72.1 mmHg E/E' lat: 6.5 E/e' average: 9.7 MV dec time: 0.18 sec SV(LVOT): 107.9 ml Reading Physician:06:42 PM
== END ==
LOC: ECHO 13:41
PROVIDERS: PCP Family Medicine; Referring Provider Internal Medicine Cardiovascular Disease; Visit Provider Internal Medicine Cardiovascular Disease
DX: I08.2 Rheumatic disorders of both aortic and tricuspid valves (principal); R01.1 Cardiac murmur, unspecified
CPT/HCPCS: 93306

== ENCOUNTER 2025-06-01 00:17 | Emergency (ER) | payer MEDICARE, OTHER, SELFPAY ==
[2023-12-02 11:40] VITALS: BMI 26.5
[2025-06-01] VITALS (13 sets, daily range): BP systolic 107–162; BP diastolic 54–89; PULSE 53–77; RESP 13–20; TEMP 36.5; O2SAT 94–99; BMI 25.8
--- NOTE | 2025-06-01 00:35 | ED_ITS ---
HPI - General Adult
--- NOTE | 2025-06-01 00:35 | ED.GENADULT ---
HPI - General Adult General Chief complaint: Syncope Stated complaint: GLF, head lac Time Seen by Provider: 06/01/25 00:25 Source: patient and EMS Mode of arrival: EMS History of Present Illness HPI narrative: 74-year-old male had unwitnessed ground level fall with loss of consciousness, unclear if his loss of consciousness preceded his fall. Did not recall having chest pain, palpitations, shaking, focal weakness, focal numbness. Had recent alcohol. Does not take blood thinner medications. Says that he woke up on the ground. Related Data Home Medications ?Medication ?Instructions ?Recorded ?Confirmed telmisartan 80 mg tablet (Micardis) 80 mg PO Q DAY ##0 05/19/17 12/03/23 brimonidine 0.025 % eye drops 1 drp EYE-LEFT DAILY 10/22/20 12/02/23 hydrochlorothiazide 12.5 mg tablet 12.5 mg PO DAILY 12/02/23 12/02/23 rosuvastatin 40 mg tablet 40 mg PO DAILY 12/02/23 12/02/23 metoprolol tartrate 50 mg tablet 50 mg PO BID 12/03/23 12/03/23 Allergies Allergy/AdvReac Type Severity Reaction Status Date / Time Sulfa (Sulfonamide Allergy Mild Verified 06/01/25 00:18 Antibiotics) amlodipine AdvReac Intermediate Verified 06/01/25 00:18 Patient History Medical History History of heart attack History of prostate cancer Hypertension Surgical History Hx of appendectomy History of prostate surgery Hx of heart bypass surgery No pertinent past surgical history Family History Father Hypertension Stroke Mother Hypertension Brother Hypertension Social History marital status: household members: spouse lives independently: Yes occupational status: previously employed Smoking Status: Never smoker alcohol intake: current substance use type: does not use Smoking Status: Never smoker alcohol intake frequency: 0-2 drinks per day Alcohol type: hard liquor Exam Narrative Exam Narrative: GENERAL: Well-developed patient, in mild distress. HEAD: Atraumatic. Normocephalic. EYES: Pupils equal round and reactive. Extraocular motions intact. No scleral icterus. No injection or drainage. ENT: Nose without deformity or tenderness or bleeding. Left infraorbital zygomatic area curvilinear laceration 2.5cm through skin but no visible orbicularis musculature or bone or foreign body. Nearby adjacent left periorbital 1 cm laceration through skin. Left forehead area Y shaped laceration 2.5 cm total length through skin, nearby adjacent laceration 0.5 cm through skin. No tenderness TMJs or along mandible, open mouth normal, no obvious intraoral lesions, no loose teeth or tongue lacerations. NECK: Trachea midline. Moves neck well, no posterior tenderness, no anterior neck injuries obvious. CARDIOVASCULAR: Regular rate and rhythm without murmurs, gallops, or rubs. RESPIRATORY: Clear to auscultation. Breath sounds equal bilaterally. No wheezes, rales, or rhonchi. Midline sternal go healed scar. GASTROINTESTINAL: Abdomen soft, non-tender, nondistended. EXTREMITIES: No edema or joint tenderness. BACK: Nontender without deformity or crepitance. No flank tenderness. NEURO: AOx3. Motor functions grossly nonfocal. SKIN: No rash or erythema of visible areas Initial Vital Signs Initial Vital Signs: Vital Signs Temperature 97.7 F 06/01/25 00:17 Pulse Rate 72 06/01/25 00:17 Respiratory Rate 14 06/01/25 00:17 Blood Pressure 162/89 H 06/01/25 00:17 Pulse Oximetry 99 06/01/25 00:17 Oxygen Delivery Method Room Air 06/01/25 00:17 Procedures Laceration Repair Laceration 1: Time of procedure: 02:30 Site: face (Left periorbital zygomatic area curvilinear laceration through skin, no visible musculature.) Side (If applicable): left Size (cm): 2.5 Description: linear (Curvilinear) Depth: simple, single layer Local Anesthetic: lidocaine 1% and with epi Amount of anesthesia used (mL): 4 Skin layer closed with: other (Fast absorb suture) Skin layer suture size: 5-0 Number of sutures: 7 Technique: simple, interrupted Laceration 2: Time of procedure: 02:35 Site: face (Left inferior periorbital) Side (If applicable): left Size (cm): 1 Description: linear Depth: simple, single layer Local Anesthetic: lidocaine 1% and with epi Amount of anesthesia used (mL): 2 Skin layer closed with: other (Fast absorb suture) Skin layer suture size: 5-0 Number of sutures: 3 Technique: simple, interrupted Laceration 3: Time of procedure: 02:40 Site: face (Left forehead) Side (If applicable): left Size (cm): 2.5 Description: linear (Y shaped horizontal laceration) Local Anesthetic: lidocaine 1% and with epi Amount of anesthesia used (mL): 4 Skin layer closed with: other (Fast absorb suture) Skin layer suture size: 5-0 Number of sutures: 7 Technique: simple, interrupted (Six simple interrupted, 1 corner stitch) Laceration 4: Time of procedure: 02:45 Site: face (Left forehead) Side (If applicable): left Size (cm): 1 Description: linear Depth: simple, single layer Local Anesthetic: lidocaine 1% and with epi Amount of anesthesia used (mL): 4 Skin layer closed with: other (Fast absorb suture) Skin layer suture size: 5-0 Number of sutures: 3 Technique: simple, interrupted Course Orders Ordered: ED Orders 06/01/25 00:37 XR chest 1V Stat EKG-12 Lead Stat 06/01/25 01:01 Complete Blood Count AUTO DIFF Stat Comprehensive Metabolic Panel Stat Ethanol (ETOH) Stat [facility] Creatine Kinase MB Routine Lipase Stat Magnesium Stat NT-proBNP (BNP-Adult 18+) Stat Troponin I Stat 06/01/25 01:11 CT facial bones wo con Stat CT head/brain wo con Stat 06/01/25 01:14 CT cervical spine wo con Stat 06/01/25 03:09 Trop I [Troponin I] Stat Discontinued Medications Lidocaine/Epinephrine (Lidocaine 1% W/Epi 10ml) 4 ml INJ INTRA-OP ONE Stop: 06/01/25 02:00 Last Admin: 06/01/25 02:02 Dose: 4 ml Documented By: JOAO Vital Signs Vital signs: Vital Signs - 8 hr 06/01/25 00:17 06/01/25 00:19 06/01/25 00:30 Temperature 97.7 F Pulse Rate 72 66 68 Respiratory Rate 14 Blood Pressure 162/89 H Pulse Oximetry 99 97 97 Oxygen Delivery Method Room Air Room Air Room Air 06/01/25 00:30 06/01/25 01:00 06/01/25 01:00 Temperature Pulse Rate 67 Respiratory Rate Blood Pressure 158/83 H 149/71 H Pulse Oximetry 95 Oxygen Delivery Method Room Air 06/01/25 01:29 06/01/25 01:29 06/01/25 01:30 Temperature Pulse Rate 64 61 Respiratory Rate 14 Blood Pressure 130/73 Pulse Oximetry 97 97 Oxygen Delivery Method Room Air Room Air 06/01/25 01:30 06/01/25 02:00 06/01/25 02:00 Temperature Pulse Rate 55 L Respiratory Rate 15 Blood Pressure 128/75 116/65 Pulse Oximetry 94 Oxygen Delivery Method Room Air 06/01/25 02:30 06/01/25 02:30 06/01/25 03:00 Temperature Pulse Rate 63 61 Respiratory Rate 20 20 Blood Pressure 119/64 Pulse Oximetry 99 97 Oxygen Delivery Method Room Air Room Air 06/01/25 03:00 06/01/25 03:30 06/01/25 03:30 Temperature Pulse Rate 57 L Respiratory Rate 15 Blood Pressure 129/69 132/61 Pulse Oximetry 96 Oxygen Delivery Method Room Air 06/01/25 04:00 06/01/25 04:01 06/01/25 04:01 Temperature Pulse Rate 53 L 53 L Respiratory Rate 13 13 Blood Pressure 107/54 L Pulse Oximetry 97 96 Oxygen Delivery Method Room Air Room Air 06/01/25 06:59 Temperature Pulse Rate 77 Respiratory Rate 18 Blood Pressure 134/89 Pulse Oximetry 97 Oxygen Delivery Method Room Air Medical Decision Making Lab Data Lab results reviewed: Yes I reviewed the patient's lab results. Lab results narrative: White blood cell count 7500, hemoglobin 14, platelets adequate. Glucose 101, normal renal function, serum CO2, electrolytes. Liver functions normal. Lipase normal. Troponin negative x2 interval sets. BNP 700s mildly elevated. Blood alcohol level 174 at 1:00 a.m. noted. 06/01/25 01:01 06/01/25 01:01 Labs: Lab Results 06/01/25 06/01/25 Range/Units 01:01 03:09 WBC 7.5 (4.5-11.0) X10^3/uL RBC 3.97 L (4.5-5.9) X10^6/uL Hgb 14.0 (13.5-17.5) g/dL Hct 41.1 (41-53) % MCV 103.5 H (80-100) fL MCH 35.1 H (26-34) PG MCHC 34.0 (30-36) % RDW 13.4 (11.6-14.8) % Plt Count 184 (150-400) X10^3/uL Neut % (Auto) 68.6 (50-75) % Lymph % (Auto) 16.5 L (25-40) % [place] % (Auto) 9.0 (3-14) % Eos % (Auto) 3.9 (2-4) % Baso % (Auto) 2.0 (0-2) % Neut # (Auto) 5100 (7004-9952) /uL Lymph # (Auto) 1200 (4594-3584) /uL [place] # (Auto) 700 (0-900) /uL Eos # (Auto) 300 (0-450) /uL Baso # (Auto) 200 H (0-100) /uL Sodium 145 (137-145) mmol/L Potassium 3.8 (3.4-5.1) mmol/L Chloride 113 H (98-107) mmol/L Carbon Dioxide 22 (22-32) mmol/L BUN 18 (9-20) mg/dL Creatinine 1.10 (0.66-1.25) mg/dL Estimated GFR > 60 (>60) mL/min BUN/Creatinine Ratio 16.4 (6-22) Glucose 101 H (70-99) mg/dL Calcium 9.7 (8.4-10.2) mg/dL Magnesium 1.9 (1.6-2.3) mg/dL Total Bilirubin 0.4 (0.2-1.3) mg/dL AST 31 (17-59) IU/L ALT 23 (<50) IU/L Alkaline Phosphatase 73 (38-126) U/L Troponin I < 0.012 < 0.012 (0.01-0.034) ng/mL NT-Pro-B Natriuret Pep 725 H (<125) pg/mL Total Protein 6.6 (6.3-8.2) g/dL Albumin 4.0 (3.5-5.0) g/dL Globulin 2.6 (1.7-4.1) g/dL Albumin/Globulin Ratio 1.5 (1.0-2.8) Lipase 222 (23-300) U/L Ethyl Alcohol 171 H (<10) mg/dL Imaging Data Chest x-ray: Radiologist's Impression: [address] [address] XRay Report Signed Patient: Néstor Jones MR#: [id number] : 1950 Acct:[id number] Age/Sex: 74 / M Date of Service: 06/01/25 Loc: ED Accession Number: [id number] Procedure: XR chest 1V Ordering Provider: Barry Rios MD PROCEDURE: XR CHEST 1V INDICATIONS: syncope TECHNIQUE: One view of the chest was acquired. COMPARISON: [facility], CR, XR CHEST 2V, 11/13/2020, 11:53. [facility], CR, XR CHEST 2V, 10/26/2018, 12:02. FINDINGS AND IMPRESSION: On this single view study, no airspace consolidation or pleural effusion is seen. Borderline cardiomegaly. Mediastinal clips and sternotomy wires, some of which are broken. Degenerative osseous findings. Dictated by: Bryon Ortiz M.D. on 06/01/2025 at 1:06 Approved by: Bryon Ortiz M.D. on 06/01/2025 at 1:06 CT scan - head: Radiologist's Impression: [address] [address] [address] Scan Report Signed Patient: Néstor Jones MR#: [id number] : 1950 Acct:[id number] Age/Sex: 74 / M Date of Service: 06/01/25 Loc: ED Accession Number: [id number] Procedure: CT head/brain wo con Ordering Provider: Barry Rios MD PROCEDURE: CT HEAD/BRAIN WO CON INDICATIONS: GLF scalp face trauma TECHNIQUE: Noncontrast 4.5 mm thick angled axial sections acquired from the foramen magnum to the vertex, with coronal and sagittal reformats. For radiation dose reduction, the following was used: automated exposure control, adjustment of mA and/or kV according to patient size. COMPARISON: [facility], CT, CT HEAD/BRAIN WO CON, 05/04/2021, 0:54. FINDINGS: Image quality: Diagnostic CSF spaces: Basal cisterns are patent. Lateral ventricles are symmetric. Volume: Vascular calcifications. Periventricular white matter disease is commonly seen with chronic microangiopathy. Volume loss is present. These findings are [id number] Brain: No acute hemorrhage. No gross loss of clements-white differentiation Craniofacial structures: No significant paranasal sinus opacity. Left supraorbital soft tissue contusion. IMPRESSION: No acute intracranial pathology. Supraorbital soft tissue contusion. Dictated by: Bryon Ortiz M.D. on 06/01/2025 at 1:37 Approved by: Bryon Ortiz M.D. on 06/01/2025 at 1:39 CT - cervical spine: Radiologist's Impression: [address] [address] [address] Scan Report Signed Patient: Néstor Jones MR#: [id number] : 1950 Acct:[id number] Age/Sex: 74 / M Date of Service: 06/01/25 Loc: ED Accession Number: [id number] Procedure: CT cervical spine wo con Ordering Provider: Barry Rios MD PROCEDURE: CT CERVICAL SPINE WO CON INDICATIONS: syncope, fall, etoh TECHNIQUE: Noncontrast 3 mm thick sections acquired from the skull base to the T4 level. Sagittal and coronal reformats were then constructed. For radiation dose reduction, the following was used: automated exposure control, adjustment of mA and/or kV according to patient size. COMPARISON: [facility], CT, CT CERVICAL SPINE WO CON, 05/04/2021, 0:54. FINDINGS: Image quality: Diagnostic Bones: [id number]-pl-[id number] cervical spondylosis. Ossifications are seen of the posterior longitudinal ligament. Multifocal suspected areas of thecal sac narrowing. No displaced fracture. No traumatic subluxation. Straightening of the normal cervical lordosis. Soft tissues: No apical pneumothorax. Diffuse vascular calcifications. No pathologic prevertebral soft tissue swelling. IMPRESSION: No displaced fracture or traumatic subluxation. Atqb-fh-htetbtxa spondylosis. If there is high concern for further derangement, consider MRI evaluation. Dictated by: Bryon Ortiz M.D. on 06/01/2025 at 1:48 Approved by: Bryon Ortiz M.D. on 06/01/2025 at 1:50 CT face noncontrast: Radiologist's Impression: [address] [address] [address] Scan Report Signed Patient: Néstor Jones MR#: [id number] : 1950 Acct:[id number] Age/Sex: 74 / M Date of Service: 06/01/25 Loc: ED Accession Number: [id number] Procedure: CT facial bones wo con Ordering Provider: Barry Rios MD PROCEDURE: CT FACIAL BONES WO CON INDICATIONS: left infer orbital lac, forehad lacs TECHNIQUE: Noncontrast 2.5 mm thick axial images acquired from the mandible through the frontal sinuses, with coronal and sagittal reformatting. For radiation dose reduction, the following was used: automated exposure control, adjustment of mA and/or kV according to patient size. COMPARISON: [facility], CT, CT FACIAL BONES WO CON, 05/04/2021, 0:54. FINDINGS: Image quality: Diagnostic Bones: Age-indeterminate rightward nasal septum deviation, seen previously. No displaced acute appearing nasal fracture. Pterygoid plates and zygomatic arches appear intact. Mandibular ring appears intact. No displaced temporal bone fracture. The orbital dover appear intact. Sinuses and mastoids: Mild ethmoid mucosal thickening. No significant paranasal sinus opacity. No mastoid effusion. Soft tissues: Supraorbital and left periorbital and cheek soft tissue injuries. No enlarged lymph nodes by size criteria. No drainable fluid collections. Brain: Unremarkable, partially visualized. IMPRESSION: Facial and forehead soft tissue injuries. No displaced maxillofacial fracture identified. Dictated by: Bryon Ortiz M.D. on 06/01/2025 at 1:45 Approved by: Bryon Ortiz M.D. on 06/01/2025 at 1:48 [facility] Narrative Medical decision making narrative: 74-year-old male had unwitnessed fall, recently lost his , had been drinking alcohol ?more than usual? tonight, ground level fall, cannot remember details before his fall, no known preceding chest pain, has sternal scar, denies chest pain shortness of breath after his fall. Nonfocal neuro exam. Multiple facial lacerations periorbital contusions. CT head, face, C-spine. EKG, chest x-ray, labs sent. Chest x-ray no acute changes. See radiology report. Lab data: White blood cell count 7500, hemoglobin 14, platelets adequate. Glucose 101, normal renal function, serum CO2, electrolytes. Liver functions normal. Lipase normal. Troponin negative x2 interval sets. BNP 700s mildly elevated. Blood alcohol level 174 at 1:00 a.m. noted. Elevated ethanol noted. CT head, no brain injury obvious, no fractures noted. Soft tissue swelling. See radiology report. CT face, no acute bony fractures. Soft tissue swelling. See radiology report. CT cervical spine, DJD changes, no traumatic fractures or subluxation. See radiology report. Multiple facial lacerations, primarily closed with absorbable 5-0 fast absorb sutures, see separate laceration repair procedure notes. Tetanus reportedly up-to-date 429, Further observed in the emergency department, ambulated to the bathroom, more alert. Denies suicidal ideation. Relays loss of his noon yesterday after 3 week long course O[place] rudolph where he was at her bedside, was drinking alcohol today in memory of her loss but also to celebrate the end of her suffering. Denies ongoing suicidal ideation. He feels comfortable going home. He will call for a ride home little bit later this morning. Declines social sciences research scientist consult when offered. Facial laceration sutures should flake away with fast absorb stitches, we discussed wound infection changes and return warnings. Recheck advised with his regular doctor in next few days to check his wounds. Discharged home, transport by area friends POV. Follow up with PCP for wound check in the next couple of days advised. Return precautions discussed. Discharge Plan Departure Patient Disposition: Home Clinical Impression: Fall from ground level, Face lacerations, Alcohol intoxication Activity Restrictions/Additional Instructions: Recent loss of your yesterday after long illness and taken off life support. Recent alcohol use today. No suicidal thoughts. You had unwitnessed fall and sustained multiple lacerations to your left face. CT scan of the brain, face, cervical spine of the neck negative for any bony fractures or brain injury patterns. EKG and serial blood tests not suggestive of heart attack as cause of your fall. Lacerations were repaired with fast-absorb suture, which should flake away in the next few days. Consider wound check with your regular doctor in the next couple of days. Return earlier to this/nearest emergency department for any change worsening symptoms or any concerns prior. Prescriptions: No Action telmisartan [Micardis] 80 MG tablet 80 mg PO Q DAY Qty: 0 brimonidine 0.025 % drops 1 drp EYE-LEFT DAILY rosuvastatin 40 mg tablet 40 mg PO DAILY hydrochlorothiazide 12.5 mg Tablet 12.5 mg PO DAILY metoprolol tartrate 50 mg tablet 50 mg PO BID Referrals: Max Fisher MD [Primary Care Provider, [facility]] Stand Alone Forms: Patient Portal/API
--- NOTE | 2025-06-01 00:37 | DI.RAD.S_ITS ---
PROCEDURE: XR CHEST 1V
--- NOTE | 2025-06-01 00:45 | PC.NURSE ---
Wounds cleanesed with warm water and soap, then irrigated with NS and covered with gauze d/t continued bleeding.
--- NOTE | 2025-06-01 00:53 | PC.NURSE ---
Imaging at bedside
--- NOTE | 2025-06-01 01:03 | EKG_ITS ---
[facility]
--- NOTE | 2025-06-01 01:11 | DI.CT.S_ITS ---
PROCEDURE: CT FACIAL BONES WO CON
--- NOTE | 2025-06-01 01:11 | DI.CT.S_ITS ---
PROCEDURE: CT HEAD/BRAIN WO CON
--- NOTE | 2025-06-01 01:11 | PC.NURSE ---
Dr. Rios in to exam room to examine patient
[2025-06-01 01:12] LABS: Add Manual Diff / Slide Review NO; Hematocrit 41.1 % (41-53); Hemoglobin 14.0 g/dL (13.5-17.5); Lymphocytes Absolute Auto 1200 /uL (1100-4500); Mean Corpuscular HGB Conc 34.0 % (30-36); Mean Corpuscular Hemoglobin 35.1 PG (26-34); Mean Corpuscular Volume 103.5 fL (80-100); Platelet Count 184 X10^3/uL (150-400)
--- NOTE | 2025-06-01 01:14 | DI.CT.S_ITS ---
PROCEDURE: CT CERVICAL SPINE WO CON
--- NOTE | 2025-06-01 01:17 | PC.NURSE ---
Pt to imaging via ED stretcher with mathematical engineering technician
[2025-06-01 01:20] LABS: Alanine Aminotransferase 23 IU/L (<50); Albumin 4.0 g/dL (3.5-5.0); Albumin Globulin Ratio 1.5 (1.0-2.8); Alkaline Phosphatase 73 U/L (38-126); Blood Urea Nitrogen 18 mg/dL (9-20); Calcium 9.7 mg/dL (8.4-10.2); Carbon Dioxide 22 mmol/L (22-32); Chloride 113 mmol/L (98-107); Estimated Glomerular Filt Rate > 60 mL/min (>60); Globulin 2.6 g/dL (1.7-4.1); Glucose 101 mg/dL (70-99); HEMOLYSIS < 15 (0-50); Lipase 222 U/L (23-300); Magnesium 1.9 mg/dL (1.6-2.3); Potassium 3.8 mmol/L (3.4-5.1); Sodium 145 mmol/L (137-145); Total Protein 6.6 g/dL (6.3-8.2)
[2025-06-01 01:32] LABS: NT-proBNP (BNP-Adult 18+) 725 pg/mL (<125); Troponin I < 0.012 ng/mL (0.01-0.034)
[2025-06-01 01:45] LABS: Ethanol (ETOH) 171 mg/dL (<10)
[2025-06-01] MEDS: LIDOCAINE 1% W/EPI 10ML 4 ML INJ (02:02)
[2025-06-01 03:59] LABS: Troponin I < 0.012 ng/mL (0.01-0.034)
--- NOTE | 2025-06-01 04:10 | PC.NURSE ---
Pt resting quietly with eyes closed, resps even and not labored. No distress noted at this time. Pt rouses easily to verbal stimuli and engages with RN. Pt remains connected to cardiac, resp, bloood pressure, and pulse ox monitors with alarms on and audible. VS stable. Call light within reach. Warm blankets provided.
--- NOTE | 2025-06-01 07:01 | PC.NURSE ---
Ambulatory to restroom without difficulty or assistance
[2025-06-02 07:09] LABS: Labcorp Creatine Kinase MB 3.7 ng/mL (0.0-10.4)
== END 2025-06-01 07:12 | disposition home or self-care (01) ==
PROVIDERS: Emergency Provider Emergency Medicine; PCP Family Medicine
DX: S01.112A Laceration without foreign body of left eyelid and periocular area, initial encounter (principal); S01.81XA Laceration without foreign body of other part of head, initial encounter; R55 Syncope and collapse; F10.129 Alcohol abuse with intoxication, unspecified; Y90.6 Blood alcohol level of 120-199 mg/100 ml; W18.30XA Fall on same level, unspecified, initial encounter
CPT/HCPCS: 12014; 36415; 70450; 70486; 71045; 72125; 80053; 80320; 82553; 83690; 83735; 83880; 84484; 85025; 93005; 99284